=== PATIENT | male | born 1935 | race Hispanic/Latino ===

== ENCOUNTER 2019-06-30 13:16 | Inpatient (IN) | payer MEDICARE, OTHER ==
[~2019-06-30] VITALS: Ht 167.6 cm; Wt 88.5 kg
[~2019-06-30 13:16] MED LIST: AMOXICILLIN500 M1 PO; ATORVASTATIN CA80 MG PO; COUMADIN3 MG PO; DONEPEZIL HCL10 MG PO; ENALAPRIL MALEA20 MG PO; FINASTERIDE5 MG PO; FLOMAX0.4 MG PO; GABAPENTIN100 MG PO; GLIPIZIDE5 MG PO; LANTUS 3ML100 UNITS/ SQ; LANTUS100 UNITS/ SQ; LYRICA75 MG PO; METOPROLOL SUCC25 MG PO; PLAVIX75 MG PO; RANITIDINE HCL150 MG PO
--- OUTSIDE RECORDS SUMMARY | 2019-06-30 13:20 | XMS REPORT ---
Author Author [facility] Organization [facility] Address Unknown Phone Unavailable Care Team Providers Care Night Auditor Name Role Phone Unavailable Unavailable Problems This patient has no known problems. Allergies, Adverse Reactions, Alerts This patient has no known allergies or adverse reactions. Medications This patient has no known medications. Encounters Start Date/Time End Date/Time Encounter Type Admission Type [facility] Care Department Encounter ID 2019-03-01 08:32:00 Inpatient E [facility] [id number] 2019-03-13 21:53:00 2019-03-13 16:09:00 Inpatient E [facility] MED [id number]
[2019-06-30] MEDS ORDERED: SODIUM CHLORIDE 0.9% 1000ML 1,000 ML IV STA (13:23)
[2019-06-30 14:21] LABS: BASOPHILS % 0.3 % (0.0-1.0); EOSINOPHILS # (AUTO) 0.1 (0.0-0.4); EOSINOPHILS % 1.1 % (0.0-6.0); HEMATOCRIT 32.3 % (38.2-49.6); HEMOGLOBIN 10.7 g/dL (14.0-18.0); LYMPHOCYTES # (AUTO) 1.1 (1.0-3.2); LYMPHOCYTES % 13.5 % (18.0-39.1); MEAN CORPUSCULAR HEMOGLOBIN 30.3 pg (28-32); MEAN CORPUSCULAR HGB CONC 33.1 g/dL (31-35); MEAN CORPUSCULAR VOLUME 91.5 fL (81-99); MONOCYTES # (AUTO) 0.4 (0.2-0.8); MONOCYTES % 5.1 % (4.4-11.3); NEUTROPHILS # (AUTO) 6.2 (2.1-6.9); NEUTROPHILS % 79.4 % (38.7-80.0); PLATELET COUNT 201 x10e3/uL (140-360); RED BLOOD COUNT 3.53 x10e6/uL (4.3-5.7)
--- NOTE | 2019-06-30 14:30 | NUR ---
Patient given urinal in order to provide urine sample. Educated patient to notify me via call burciaga when he could provide a sample. Patient verbalized understanding.
[2019-06-30 14:35] LABS: INR 1.08; PROTHROMBIN TIME 14.7 seconds (11.9-14.5)
[2019-06-30 14:36] LABS: PARTIAL THROMBOPLASTIN TIME 25.5 seconds (23.8-35.5)
[2019-06-30 14:44] LABS: ALANINE AMINOTRANSFERASE 488 IU/L (0-55); ALBUMIN 2.4 g/dL (3.5-5.0); ALBUMIN/GLOBULIN RATIO 0.8 (0.8-2.0); ALKALINE PHOSPHATASE 628 IU/L (40-150); AMYLASE 50 U/L (25-125); ANION GAP 13.9 mmol/L (8-16); BLOOD UREA NITROGEN 36 mg/dL (7-26); BUN/CREATININE RATIO 28 (6-25); CALCIUM 8.6 mg/dL (8.4-10.2); CARBON DIOXIDE 22 mmol/L (22-29); CHLORIDE 105 mmol/L (98-107); CREATINE KINASE 57 IU/L (30-200); CREATININE, SERUM 1.29 mg/dL (0.72-1.25); EST GLOMERULAR FILTRATION RATE 53 ML/MIN (60-); GLUCOSE 189 mg/dL (74-118); LIPASE 37 U/L (8-78); POTASSIUM 4.9 mmol/L (3.5-5.1); SODIUM 136 mmol/L (136-145)
[2019-06-30] MEDS ORDERED: ACETAMINOPHEN325 M1 PO (15:07)
[2019-06-30] MEDS ORDERED: CARVEDILOL12.5 MG PO (15:07)
[2019-06-30] MEDS ORDERED: DOCUSATE SODIU100 MG PO (15:09)
[2019-06-30] MEDS ORDERED: LISINOPRIL5 MG PO (15:09)
[2019-06-30] MEDS ORDERED: NAMENDA5 MG PO (15:09)
[2019-06-30] MEDS ORDERED: ASPIR 8181 MG PO (15:10)
--- NOTE | 2019-06-30 15:27 | Diagnostic Imaging Report ---
EXAM: Right upper quadrant abdominal ultrasound INDICATION: Obstructive jaundice COMPARISON: None. TECHNIQUE: Transverse and longitudinal images of the right upper quadrant abdomen were obtained FINDINGS: Liver: Size: 14.3 cm in the right midclavicular line, normal Appearance: Normal echogenicity, smooth contour Mass: No focal masses Gallbladder: Cholelithiasis and sludge in the gallbladder. No gallbladder wall thickening, pericholecystic fluid, or gallbladder distention. Gallbladder wall measures 2 mm. Bile Ducts: Intrahepatic Ducts: No dilatation Extrahepatic Ducts: Common bile duct measures 7 mm Pancreas: Not well-visualized due to overlying bowel gas. Kidney: The right kidney measures 11.3 cm without evidence of hydronephrosis or stone. Right upper pole 3.9 cm anechoic simple cyst. Vessels: Aorta: Visualized portions are normal Inferior Vena Cava: Visualized portions are normal Main Portal Vein: 0.9 cm, normal size with hepatopetal flow. Free Fluid: No ascites or pleural effusion IMPRESSION: Cholelithiasis and sludge in the gallbladder. No sonographic evidence of cholecystitis. Right upper pole renal cyst. Signed by: Bertrand Tong MD on 06/30/2019 3:23 PM
--- NOTE | 2019-06-30 15:30 | NUR ---
Patient unable to provide urina sample at the moment. Stressed patient on importance of sample. Patient verbalized understanding.
[2019-06-30] MEDS ORDERED: IOPAMIDOL 370 MG/ML 200 ML INFUS..BTL INJ ONE (16:09)
[2019-06-30] MEDS ORDERED: SODIUM CHLORIDE 0.9% 50ML 50 ML ONE (16:09)
--- NOTE | 2019-06-30 16:14 | Diagnostic Imaging Report ---
EXAMINATION: CHEST SINGLE (PORTABLE) INDICATION: Obstructive jaundice COMPARISON: CT abdomen and pelvis of the same day FINDINGS: LINES/TUBES:Left chest pacer. EKG leads overlie the chest. LUNGS:The lungs are moderately inflated. Central pulmonary vascular congestion. PLEURA:No pleural effusion or pneumothorax. MEDIASTINUM:Heart size at the upper limits of normal. Atherosclerotic calcifications of the thoracic aorta. BONES/SOFT TISSUES:No acute osseous injury. Sternotomy wires in place. ABDOMEN:No free air under the diaphragm. IMPRESSION: Central pulmonary vascular congestion. No focal pneumonia. Signed by: Bertrand Tong MD on 06/30/2019 4:10 PM
[2019-06-30] MEDS ORDERED: SODIUM CHLORIDE 0.9% 1000ML 1,000 ML IV SCH (16:15)
--- NOTE | 2019-06-30 16:25 | Diagnostic Imaging Report ---
EXAM: CT Abdomen and Pelvis WITH intravenous contrast INDICATION: Jaundice COMPARISON: Right upper quadrant ultrasound of the same day, chest radiograph of the same day TECHNIQUE: Abdomen and pelvis were scanned utilizing a multidetector helical scanner from the lung base to the pubic symphysis after administration of IV contrast. Coronal and sagittal reformations were obtained. Routine protocol was performed. Scan was performed during portal venous phase. IV CONTRAST: 100mL of Isovue 370 ORAL CONTRAST: Water RADIATION DOSE: Total DLP: 507 mGy*cm Dose modulation, iterative reconstruction, and/or weight based adjustment of the mA/kV was utilized to reduce the radiation dose to as low as reasonably achievable. FINDINGS: LOWER THORAX: Dependent subsegmental atelectasis. Coronary artery atherosclerotic calcifications. HEPATOBILIARY: No focal liver lesion. Moderate diffuse intrahepatic biliary ductal dilation. The common bile duct is dilated to 10 mm. A radiopaque structure at the distal common bile duct in the ampullary region may represent an obstructing stone. SPLEEN: No splenomegaly. PANCREAS: No focal masses or ductal dilatation. ADRENALS: No adrenal nodules. KIDNEYS/URETERS: No hydronephrosis or renal calculi. 4.2 cm right upper pole renal cyst. PELVIC ORGANS/BLADDER: The prostate is enlarged and measures up to 4.9 x 5.0 x 4.9 cm (volume estimate 63 cc). PERITONEUM / RETROPERITONEUM: No free air or fluid. LYMPH NODES: No lymphadenopathy. VESSELS: Moderate atherosclerotic calcifications of the nonaneurysmal abdominal aorta and major branches. GI TRACT: No abnormal bowel thickening. No bowel obstruction. Unremarkable appendix. BONES AND SOFT TISSUES: No acute osseous injury. No suspicious lytic or blastic lesions. L2 vertebral body hemangioma. IMPRESSION: Diffuse intrahepatic biliary ductal dilation and common bile duct dilation to 10 mm. Radiopaque structure at the distal common bile duct in the ampullary region may represent an obstructing stone. Recommend GI consultation for further evaluation with ERCP. Prostatomegaly. Signed by: Bertrand Tong MD on 06/30/2019 4:21 PM
[2019-06-30] MEDS: PIPER-TAZ 3.375 GM 50 ML IV SCH ×2 (16:55→23:15)
[2019-06-30 16:56] LABS: AMPHETAMINES SCREEN,URINE NEGATIVE (NEGATIVE); BENZODIAZEPINES SCREEN,URINE NEGATIVE (NEGATIVE); CLARITY,URINE CLOUDY (CLEAR); COLOR,URINE BROWN (YELLOW); PHENCYCLIDINE SCREEN,URINE NEGATIVE (NEGATIVE)
[2019-06-30 16:57] LABS: BILIRUBIN,URINE 3+ (NEGATIVE); KETONES,URINE TRACE (NEGATIVE); LEUKOCYTE ESTERASE ,URINE NEGATIVE (NEGATIVE); NITRITE,URINE NEGATIVE (NEGATIVE); PROTEIN,URINE DIPSTICK 1+ (NEGATIVE); URINE UROBILINOGEN 1 mg/dL (0.2 - 1)
[2019-06-30 17:51] LABS: BACTERIA,URINE MODERATE /HPF
[2019-06-30 17:52] LABS: AMORPHOUS SEDIMENT,URINE MODERATE (FEW)
--- NOTE | 2019-06-30 18:00 | NUR ---
report given to Anabela KELLY
[2019-06-30 19:45] VITALS: BP 126/59
[2019-06-30 20:00] VITALS: BP 126/59
[2019-06-30] MEDS: MORPHINE SULFATE INJ 4 MG/ML INJ 1ML IV PRN (23:15)
[2019-06-30] MEDS: ONDANSETRON HCL INJ 2MG/ML 2ML 2 MG/ML VIAL IV PRN (23:16)
[2019-07-01] VITALS (8 sets, daily range): BP systolic 100–130; BP diastolic 41–110
[2019-07-01 02:51] LABS: CREATINE KINASE 55 IU/L (30-200)
[2019-07-01] MEDS: PIPER-TAZ 3.375 GM 50 ML IV SCH ×4 (05:00→23:04)
[2019-07-01 06:10] LABS: BASOPHILS % 0.4 % (0.0-1.0); EOSINOPHILS # (AUTO) 0.2 (0.0-0.4); HEMATOCRIT 29.5 % (38.2-49.6); LYMPHOCYTES % 14.1 % (18.0-39.1); MEAN CORPUSCULAR HEMOGLOBIN 30.2 pg (28-32); MEAN CORPUSCULAR HGB CONC 33.9 g/dL (31-35); MEAN CORPUSCULAR VOLUME 89.1 fL (81-99); MONOCYTES # (AUTO) 0.4 (0.2-0.8); MONOCYTES % 6.1 % (4.4-11.3); NEUTROPHILS # (AUTO) 5.5 (2.1-6.9); PLATELET COUNT 222 x10e3/uL (140-360); RED BLOOD COUNT 3.31 x10e6/uL (4.3-5.7); RED CELL DISTRIBUTION WIDTH 18.5 % (11.7-14.4)
[2019-07-01 06:26] LABS: CREATINE KINASE 44 IU/L (30-200)
[2019-07-01 06:29] LABS: ALBUMIN 2.1 g/dL (3.5-5.0); ALBUMIN/GLOBULIN RATIO 0.8 (0.8-2.0); ANION GAP 10.6 mmol/L (8-16); CREATININE, SERUM 1.22 mg/dL (0.72-1.25); POTASSIUM 4.6 mmol/L (3.5-5.1)
[2019-07-01] MEDS ORDERED: DEXTROSE 50% SYRINGE 50 ML IV STA (06:37)
--- NOTE | 2019-07-01 07:13 | NUR ---
Received patient lying in bed with eyes closed. Respiration even and unlabored without SOB. Call light in reach.
--- NOTE | 2019-07-01 07:25 | NUR ---
LAB CALLED WITH LOW BG, BG 44. D50 GIVEN, CALLED DR GAYTAN, [facility].
[2019-07-01] MEDS: DEXTROSE 5%/0.9% SOD CHL 1,000 ML IV SCH ×2 (07:26→17:15)
[2019-07-01] MEDS: MORPHINE SULFATE INJ 4 MG/ML INJ 1ML IV PRN (07:27)
[2019-07-01] MEDS: ONDANSETRON HCL INJ 2MG/ML 2ML 2 MG/ML VIAL IV PRN (07:27)
[2019-07-01] MEDS ORDERED: DEXTROSE 50% SYRINGE 50 ML IV PRN (09:00)
[2019-07-01] MEDS: CARVEDILOL 12.5 MG TAB PO SCH ×2 (09:48→17:07)
[2019-07-01] MEDS: TAMSULOSIN HCL 0.4 MG CAP PO SCH (09:49)
[2019-07-01] MEDS: MEMANTINE 10 MG TAB PO SCH ×2 (09:49→16:15)
[2019-07-01] MEDS: GABAPENTIN 100 MG CAP PO SCH ×2 (09:49→16:15)
--- NOTE | 2019-07-01 11:28 | History and Physical ---
CHIEF COMPLAINT: Jaundice increase in liver enzyme. HISTORY OF PRESENT ILLNESS: The patient is an 84-year-old male, who is a resident of [facility]. The patient came in with increase in jaundice associated with increase in liver enzyme. The patient has also had a total bilirubin of 11.8. The patient did not complain of any pain. His sugar was in the 40. The patient baseline Alzheimer dementia. He is unable to give any coherent history, but he is not in any distress. PAST MEDICAL HISTORY: Including benign prostatic hyperplasia, gastroesophageal reflux disease, peripheral vascular disease, hypertension, Alzheimer's dementia, atherosclerotic coronary artery disease, chronic kidney disease, diabetes type 2, dyslipidemia, and diabetic neuropathy. He has a chronic systolic dysfunction congestive heart failure with ejection fraction of 20%. History of hemorrhagic stroke. ICD, CEA CABG. Coronary stents. PAST SURGICAL HISTORY: Right AKA. ICD, CABG, CEA SOCIAL HISTORY: The patient is a resident of [facility]. ALLERGIES: NO KNOWN ALLERGIES. CURRENT MEDICATIONS: Lantus insulin 35 units at night and 5 units in the morning, insulin sliding scale coverage, Tylenol p.r.n., Colace, multivitamins, Coreg 12.5 mg b.i.d., lisinopril 5 mg b.i.d., Aricept 10 mg at bedtime, Namenda 10 mg b.i.d., aspirin 81 mg daily, Flomax 0.4 mg daily, finasteride 5 mg daily, gabapentin 100 mg t.i.d. PHYSICAL EXAMINATION: VITAL SIGNS: Temperature is 98, blood pressure 118/49, pulse rate 70, and respirations 18. GENERAL: The patient is not in acute distress. HEENT: Normocephalic. Jaundice. NECK: Grossly supple. PULMONARY: Diminished breath sounds. CARDIOVASCULAR: Promus pacemaker. ABDOMEN: Soft. EXTREMITIES: Right AKA. NEUROLOGIC: No gross focal deficit. LABORATORY DATA: WBC 7.8, hemoglobin 10.7, hematocrit 32.3, and platelets are 201. Chemistry; sodium 140, potassium 4.6, chloride 112, bicarb 22, BUN is 30, creatinine 1.5, and glucose is 44. Calcium is 8, total bilirubin is 11.8, AST 227, ALT is 402, alkaline phosphatase is 646. Cardiac enzymes negative. Amylase and lipase are 50 and 12 respectively. IMAGING TESTS: Abdominal CT scan showed diffuse intrahepatic biliary ductal dilatation and common bile duct dilatation to 10 mm. Radiopaque structure at the distal common bile duct in the ampullary region. Chest x-ray vascular congestion. Gallbladder ultrasound showed cholelithiasis and sludge in the gallbladder. IMPRESSION: 1. Painless jaundice. 2. Common bile duct stone obstruction. 3. Obstructive jaundice. 4. Elevation of liver enzymes. 5. Extensive chronic medical problems. PLAN: GI consultation, Dr. Vincent Daniel. Surgery consultation with Dr. Stefan Guy. Zosyn IV antibiotic empirically. Nothing by mouth except for medication. IV fluids. Treat low blood sugar. Home medications some adjustment. Blood pressure control. MD HONG Brown/JA /[id number] MTDD
[2019-07-01] MEDS: INSULIN LISPRO 100 UNIT/1 ML 3ML VIAL SQ SCH ×3 (12:00→23:05)
--- NOTE | 2019-07-01 12:57 | NUR ---
Left a voicemail to Dr. Frantz Chowdary regarding patient's episode of VTACH. Awaiting for call back.
[2019-07-01 14:05] LABS: CREATINE KINASE 61 IU/L (30-200)
--- NOTE | 2019-07-01 14:33 | Consultation ---
DATE OF CONSULTATION: 07/01/2019 HISTORY OF PRESENT ILLNESS: The patient is an 84-year-old male, resident of senior living, who was sent to the hospital with jaundice. The patient denies any abdominal pain. He was found to have a bilirubin of 11.8. An abdominal CT scan suggested a gallstone in the distal common bile duct. PAST MEDICAL HISTORY: Significant for enlarged prostate, gastroesophageal reflux disease, peripheral vascular disease, previous right shzix-doa-stxp amputation, history of hypertension, Alzheimer's, coronary artery disease, chronic kidney disease, diabetes, hyperlipidemia. MEDICATIONS: At the senior living are insulin, Coreg, Colace, lisinopril, Aricept, Namenda, Flomax, finasteride, gabapentin. ALLERGIES: HE HAS NO KNOWN ALLERGIES. FAMILY HISTORY: Noncontributory. SOCIAL HISTORY: The patient is a resident of senior living. REVIEW OF SYSTEMS: Cannot be obtained. PHYSICAL EXAMINATION: GENERAL: The patient is awake and alert. VITAL SIGNS: Normal. HEENT: Sclerae is icteric. NECK: Has no masses. LUNGS: Equal breath sounds are clear bilaterally. CARDIAC: Paced rhythm. ABDOMEN: Soft. There is no tenderness. No mass. No organomegaly. EXTREMITIES: Healed right above-knee amputation. NEUROLOGIC: Grossly intact with a right facial droop. LABORATORY DATA: White blood cell count is normal, hemoglobin 10, hematocrit 30, and platelet count is normal. Coagulation studies reveal slightly elevated PT. Chemistries; revealed elevated bilirubin 11.8, elevated AST, ALT, and alkaline phosphatase. Lipase is normal. BUN is 30, creatinine 1.2. IMAGING STUDIES: As stated above. Ultrasound revealed gallstones with sludge with a CT scan revealing dilated bile duct with possible common bile duct stone. ASSESSMENT: This 84-year-old male with obstructive jaundice, likely due to choledocholithiasis. He is to have ERCP done on Wednesday. At this point, he may start on liquid diet. There are no signs of acute abdomen. No findings that would warrant immediate surgical intervention. He likely also will benefit from cholecystectomy once the ERCP has been done. Thank you for asking me to see Mr. Forrester. MD ANKIT Flores/JA /[id number]
--- NOTE | 2019-07-01 16:59 | Consultation ---
DATE OF CONSULTATION: CHIEF COMPLAINT: Jaundice. HISTORY OF PRESENT ILLNESS: This is a very pleasant 84-year-old man comes in with obstructive jaundice. Bilirubin of 11. Dilated bile ducts on CAT scan. Possible stone in the common bile duct. The patient denies abdominal pain. Denies fever or chills. He is currently on antibiotics. He has other medical problems including peripheral vascular disease. PAST MEDICAL HISTORY: See old records including peripheral vascular disease and diabetes. PAST SURGICAL HISTORY: Above knee amputation. SOCIAL HISTORY: The patient lives in a long-term. He also has some mild dementia. MEDICATIONS: See list. They include: 1. Insulin. 2. Lisinopril. 3. Flomax. 4. Gabapentin. 5. Coreg. REVIEW OF SYSTEMS: Jaundice, otherwise negative. PHYSICAL EXAMINATION: VITAL SIGNS: Blood pressure 118/50, pulse 80, temp 98. GENERAL: Well-nourished, elderly man, who has jaundice. HEART: Regular. ABDOMEN: Soft and nontender. ASSESSMENT AND PLAN: Jaundice, most likely common bile duct stone. I will recommend an ERCP. COVID test is pending. Continue antibiotics for closely. MD COLIN AsifO/MODL /[id number]
--- NOTE | 2019-07-01 17:35 | NUR ---
Nutrition Screen Note RD Recommendation for Physician: - Advance diet as tolerated to cardiac/ ADA 1800 diet Plan of Care: RD following, monitoring for tolerance and adequacy Nutrition reason for involvement: Nutrition Risk Trigger MST Primary Diagnose(s): obstructive jaundice, likely due to choledocholithiasis PMH: GERD, PVD, CKD, CAD, CHF, dyslipidemia, stroke, dementia, DM Ht: 66in Wt: 175lb BMI: N/A due to R AKA IBW: 120lb +/- 10% Adjusted based on R AKA RD Assessment: (06/30) Chart reviewed. Labs and meds reviewed. 84yo M, who was admitted from group home for jaundice and elevated liver enzymes. Visited pt in the room. Pt tolerated clear liquid diet. No complains of nausea or vomiting. LBM 06/29. Unable to obtain weight hx. Pt appeared well-nourished. Plan to have ERCP on Wednesday and possible cholecystectomy. Will continue to monitor and follow. Current Diet: clear liquid diet Malnutrition Evaluation (07/01/2019) The patient does not meet criteria for a specified degree of malnutrition at this time. Will re-evaluate at follow-up as appropriate. Diet Education Needs Assessment: Diet education not indicated. Nutrition Care Level: low Signed: Jesusita Torres, MS, RD, LD
--- NOTE | 2019-07-01 17:59 | Consultation ---
DATE OF CONSULTATION: Cardiology Consultation CHIEF COMPLAINT: The patient is an 84-year-old with jaundice. HISTORY OF PRESENT ILLNESS: The patient is an 84-year-old male who lives at the [facility] and came into the emergency room with jaundice and a total bilirubin of 12. The patient was not having any chest pain, no shortness of breath. No syncope. No dizziness. The patient did have some nausea, but no vomiting. PAST MEDICAL HISTORY: Significant for: 1. Chronic systolic congestive heart failure with a known ejection fraction of 25%. 2. Previous coronary artery bypass grafting in 2012. 3. Hypertension. 4. Chronic renal insufficiency. 5. Diabetes mellitus. 6. Implantable defibrillator placement. 7. Right qinzi-aue-zcnm amputation. SOCIAL HISTORY: The patient lives at a [facility]. The patient does not drink and is no longer smoking. FAMILY HISTORY: There is a known family history of coronary artery disease and hypertension. PHYSICAL EXAMINATION: GENERAL: The patient is in no obvious distress. VITAL SIGNS: Included a temperature of 98, blood pressure of 120/60, pulse is 70. HEAD, EARS, EYES, NOSE, AND THROAT: The patient's cranium was normocephalic and atraumatic. Extraocular muscles were intact. Sclerae were anicteric. Pupils were equal, round, and reactive to light. There is no pallor or cyanosis of the oral mucosa. NECK: Supple. No jugular venous distention. No carotid bruits. CHEST: Demonstrated rhonchi and rales bilaterally. CARDIAC: Demonstrated normal S1 and S2 with a short 2/6 systolic murmur ABDOMEN: Demonstrated good bowel sounds. No tenderness. No obvious masses. EXTREMITIES: The patient had a right sxefq-epj-caqm amputation. NEUROLOGIC: The patient was somewhat confused. IMAGING: The patient's EKG demonstrated atrioventricular pacing. IMPRESSION: The patient is an 84-year-old with chronic systolic congestive heart failure that appears to be very well compensated. The patient is having no chest pain and has no evidence of ischemia or current heart failure. The patient is cleared for endoscopy and ERCP from a cardiac standpoint. MD MERCY Villalobos/MODCici /[id number]
--- NOTE | 2019-07-01 19:00 | NUR ---
Report given to security shift supervisor. Respiration even and unlabored without SOB. Call light in reach.
[2019-07-01] MEDS: FINASTERIDE 5 MG TAB PO SCH (21:42)
[2019-07-01] MEDS: DONEPEZIL HCL 5 MG TAB PO SCH (21:42)
[2019-07-02] VITALS (7 sets, daily range): BP systolic 104–120; BP diastolic 45–62
[2019-07-02] MEDS: DEXTROSE 5%/0.9% SOD CHL 1,000 ML IV SCH ×2 (04:10→17:31)
[2019-07-02] MEDS: PIPER-TAZ 3.375 GM 50 ML IV SCH ×4 (04:20→23:18)
[2019-07-02] MEDS: INSULIN LISPRO 100 UNIT/1 ML 3ML VIAL SQ SCH ×3 (05:58→17:00)
--- NOTE | 2019-07-02 07:13 | NUR ---
Received patient lying in bed with eyes open. Respiration even and unlabored without SOB. Call light in reach.
[2019-07-02] MEDS: TAMSULOSIN HCL 0.4 MG CAP PO SCH (08:46)
[2019-07-02] MEDS: CARVEDILOL 12.5 MG TAB PO SCH ×2 (08:46→16:13)
[2019-07-02] MEDS: GABAPENTIN 100 MG CAP PO SCH ×2 (08:46→16:14)
[2019-07-02] MEDS: MEMANTINE 10 MG TAB PO SCH ×2 (08:46→16:13)
--- NOTE | 2019-07-02 18:55 | NUR ---
Report given to mold shifter. Patient in the room with a sitter at this time.
[2019-07-02] MEDS: DONEPEZIL HCL 5 MG TAB PO SCH (20:31)
[2019-07-02] MEDS: FINASTERIDE 5 MG TAB PO SCH (20:31)
[2019-07-03] VITALS (8 sets, daily range): BP systolic 110–131; BP diastolic 51–80
[2019-07-03] MEDS: PIPER-TAZ 3.375 GM 50 ML IV SCH ×4 (04:57→22:25)
[2019-07-03] MEDS: INSULIN LISPRO 100 UNIT/1 ML 3ML VIAL SQ SCH ×4 (05:55→18:30)
[2019-07-03] MEDS: MEMANTINE 10 MG TAB PO SCH ×2 (09:00→16:53)
[2019-07-03] MEDS: GABAPENTIN 100 MG CAP PO SCH ×2 (09:00→16:53)
[2019-07-03] MEDS: DEXTROSE 5%/0.9% SOD CHL 1,000 ML IV SCH ×2 (09:15→09:38)
[2019-07-03] MEDS: TAMSULOSIN HCL 0.4 MG CAP PO SCH (09:20)
[2019-07-03] MEDS: CARVEDILOL 12.5 MG TAB PO SCH ×2 (09:20→16:53)
[2019-07-03] MEDS: FUROSEMIDE INJ 10 MG/ML 2 ML VIAL IV SCH (10:27)
--- NOTE | 2019-07-03 11:57 | NUR ---
Patient left the floor for ERCP
[2019-07-03] MEDS ORDERED: IOPAMIDOL 300MG/ML 50ML INFUS..BTL IV ONE (12:42)
[2019-07-03] MEDS ORDERED: INDOMETHACIN 50 MG SUPP.RECT RC ONE (12:42)
[2019-07-03] MEDS ORDERED: SUGAMMADEX SODIUM 200 MG/2 ML VIAL IV ONE (13:43)
--- NOTE | 2019-07-03 13:56 | NUR ---
WOUND CARE CONSULT FOR 84 YO MALE HX OF GALLBLADDER , JAUNDICE, NECROTIC LEFT HEEL AND GREAT TOE KIM 14 ON MODERATE PUP STATUS AND INTERVENTIONS AND ALTERNATING PRESSURE MATTRESS LABS: WBC-7.22 HGB_10 GLUCOSE-PEND [id number] SKIN ASSESSMENT COMPLETE PATIENT PRESENTS WITH NECROTIC DRY STABLE ESCHAR TO LEFT HEEL MEASURES 5CM X6CM DRY NECROTIC TIP OF LEFT GREAT TOE 2CM X2CM RECOMMENDATIONS: NURSING TO CONTINUE TO MAINTAIN MODERATE PUP STATUS AND INTERVENTIONS AND ALTERNATING PRESSURE MATTRESS NURSING TO CONTINUE TO ASSIST PATIENT OUT OF BED FOR MEALS AND MUCH TOLERATED NURSING TO CONTINUE TO ASSIST PATIENT NEEDED WITH MEALS AND NUTRITIONAL SUPPLEMENTS TO ENSURE PROPER REQUIREMENTS FOR HEALING NURSING TO CONTINUE TO OFFLOAD FEET AND HEELS NEEDED WITH PILLOW SUSPENSION WHEN IN BED NURSING TO CLEAN NECROTIC LEFT GREAT TOE ESCHAR AND LEFT HEEL ESCHAR WITH NORMAL SALINE DAILY AND APPLY BETADINE AND 4X4 WRAP WITH KERLIX Addendum: 07/03/19 at 1403 by Rkiy Block RN Amended: Links added.
[2019-07-03] MEDS ORDERED: SODIUM CHLORIDE 0.9% 1000ML 1,000 ML IV SCH (14:00)
[2019-07-03] MEDS ORDERED: FUROSEMIDE INJ 10 MG/ML 4 ML VIAL ONE (15:39)
[2019-07-03] MEDS ORDERED: FUROSEMIDE INJ 10 MG/ML 4 ML VIAL IV SCH (16:15)
[2019-07-03] MEDS: MORPHINE SULFATE INJ 4 MG/ML INJ 1ML IV PRN (16:54)
[2019-07-03] MEDS ORDERED: DEXAMETHASONE SOD PHOS INJ 4 MG/ML VIAL ONE (18:44)
[2019-07-03] MEDS ORDERED: PROPOFOL IV EMULSION 10 MG/ML 20 ML VIAL ONE (18:44)
[2019-07-03] MEDS ORDERED: ONDANSETRON HCL INJ 2MG/ML 2ML 2 MG/ML VIAL ONE (18:44)
[2019-07-03] MEDS ORDERED: LIDOCAINE HCL 2% LOCAL INJ 5 ML SDV VIAL INJ ONE (18:44)
[2019-07-03] MEDS ORDERED: SEVOFLURANE INHAL SOLN 250 ML PEN BTL ONE (18:44)
[2019-07-03] MEDS ORDERED: ETOMIDATE 2 MG/ML 10 ML INJ IV ONE (18:44)
--- NOTE | 2019-07-03 19:29 | NUR ---
Patient received lying in bed. AAO x 3. Patient had no complaints of pain. Respirations even and non-labored. Dressing to left foot CDI. Bed locked and in lowest position. Bed rails up x 2. Bed alarm activated. Patient instructed to call for assistance when needed. Call light within reach.
--- NOTE | 2019-07-03 20:45 | NUR ---
Disclosure and Consent form signed on behalf of patient by Beryl Muir [facility] via phone. Leoncio Wiley ([facility]) acting as a witness. Upcoming procedure---Laparoscopic cholecystectomy .
[2019-07-03] MEDS: DONEPEZIL HCL 5 MG TAB PO SCH (21:59)
[2019-07-03] MEDS: FINASTERIDE 5 MG TAB PO SCH (21:59)
[2019-07-04] VITALS (8 sets, daily range): BP systolic 107–131; BP diastolic 42–75
[2019-07-04] MEDS: PIPER-TAZ 3.375 GM 50 ML IV SCH ×4 (05:00→22:35)
[2019-07-04] MEDS: INSULIN LISPRO 100 UNIT/1 ML 3ML VIAL SQ SCH ×4 (06:00→17:30)
--- NOTE | 2019-07-04 06:00 | NUR ---
Telephone Consent was obtained from daughter (Beryl Muir) who serves as MPOA for patient for "Refusal to Permit Use of Blood and/or Blood Components". Leoncio Wiley (RN) served as a witness.
[2019-07-04 06:15] LABS: ALBUMIN 2.1 g/dL (3.5-5.0)
[2019-07-04 06:21] LABS: BILIRUBIN,DIRECT 11.2 mg/dL (0.0-0.5)
--- NOTE | 2019-07-04 07:00 | NUR ---
Walking rounds done. Patient resting comfortably. BSSR given to oncoming nurse.
[2019-07-04] MEDS: MEMANTINE 10 MG TAB PO SCH ×2 (09:00→16:24)
[2019-07-04] MEDS: GABAPENTIN 100 MG CAP PO SCH ×2 (09:00→16:24)
[2019-07-04] MEDS ORDERED: FUROSEMIDE INJ 10 MG/ML 2 ML VIAL IV SCH (09:00)
[2019-07-04] MEDS: FUROSEMIDE INJ 10 MG/ML 2 ML VIAL IV SCH (10:01)
[2019-07-04] MEDS: CARVEDILOL 12.5 MG TAB PO SCH ×2 (10:02→16:24)
[2019-07-04] MEDS: TAMSULOSIN HCL 0.4 MG CAP PO SCH (10:02)
[2019-07-04] MEDS: MORPHINE SULFATE INJ 4 MG/ML INJ 1ML IV PRN (10:15)
[2019-07-04] MEDS ORDERED: BUPIVACAINE HCL 0.5% INJ 30 ML VIAL INJ ONE (11:40)
[2019-07-04] MEDS ORDERED: SUGAMMADEX SODIUM 200 MG/2 ML VIAL IV ONE (13:19)
[2019-07-04] MEDS ORDERED: HYDROCODONE/APAP 5MG-325MG TAB PO PRN (13:45)
[2019-07-04] MEDS ORDERED: MORPHINE SULFATE INJ 4 MG/ML INJ 1ML IV PRN (13:45)
[2019-07-04] MEDS ORDERED: ONDANSETRON HCL INJ 2MG/ML 2ML 2 MG/ML VIAL IV PRN (13:45)
[2019-07-04] MEDS ORDERED: SODIUM CHLORIDE 0.9% 1000ML 1,000 ML IV SCH (13:45)
[2019-07-04] MEDS ORDERED: FENTANYL CITRATE/PF 100MCG/2 ML INJ ONE ×2 (13:57→14:05)
[2019-07-04] MEDS ORDERED: MIDAZOLAM HCL 2 MG/2 ML VIAL ONE (14:05)
[2019-07-04] MEDS ORDERED: ONDANSETRON HCL INJ 2MG/ML 2ML 2 MG/ML VIAL ONE (14:17)
--- NOTE | 2019-07-04 14:30 | NUR ---
Received patient at bedside. Recovery nurse at bedside, she reports she has to reinforce middle trochar site with 4 x4 bc it was bleeding. Will continue to monitor site. Patient is alert and oriented x3, a little confused at this time but has no complaints. Call light in reach and bed alarm on
--- NOTE | 2019-07-04 15:30 | NUR ---
Middle trochar site dressing is saturated through dressing and on patient's gown. Pressure dressing was applied. Dr. Guy was notified. Per Dr. Guy keep pressure dressing in place and leave alone unless it becomes saturated.
--- NOTE | 2019-07-04 20:31 | Operative Report ---
DATE OF PROCEDURE: 07/04/2019 SURGEON: Stefan Guy MD PREOPERATIVE DIAGNOSES: Tatqh-qh-csyoiho cholecystitis, cholelithiasis. POSTOPERATIVE DIAGNOSES: Hkudr-cs-seyejnx cholecystitis, cholelithiasis. PROCEDURES: Diagnostic laparoscopy, laparoscopic cholecystectomy. RECOVERY COACH: None. ANESTHESIA: General endotracheal. INDICATIONS AND FINDINGS: The patient is an 84-year-old male, who admitted to the hospital with jaundice, abdominal pain workup revealed gallstones as well as common bile duct stones. He had preop ERCP. At Surgery, based on the gallbladder very distended and somewhat fibrotic, and edematous contained white bile and purulent fluid with some small stones. Cystic duct was about 4 mm in diameter. Common bile duct was about 8 mm in diameter. Liver had some changes, suggestive of jaundice with discoloration, lower abdomen appeared normal. TECHNIQUE: After adequate general endotracheal anesthesia, the patient is in supine position, the abdomen was prepped and draped in sterile fashion with ChloraPrep solution. Skin in the umbilicus was infiltrated with 0.5% Marcaine. Incision was made in the umbilicus, abdominal wall was elevated, and Veress needle was introduced, pneumoperitoneum was then created. A 10 mm trocar and cannula were then passed through the umbilical wound. Laparoscopic camera was introduced. Initial laparoscopy revealed the gallbladder very distended with some adhesions involving all omentum. A 10 mm trocar and cannula were placed in epigastrium. Two 5 mm trocars and cannulas were placed in the right upper quadrant, these were placed under direct vision. Fundus of the gallbladder was grasped, retracted superiorly. The adhesions of the gallbladder were lysed staying close to the gallbladder. Neck of the gallbladder was grasped, retracted laterally. Peritoneum over the neck of the gallbladder was incised. The gallbladder cystic duct junction was dissected free. Cystic artery was also dissected free. The neck of the gallbladder completely dissected free. Cystic artery was divided between hemoclips close to the gallbladder. Cystic duct was large noted and divided. The epigastric cannula changed to a 12 mm cannula and the cystic duct was divided with Endo-SCAR stapler. There was a posterior branch of cystic artery was also divided between hemoclips. The gallbladder was dissected free from the liver using scissors and electrocautery. Once it was entirely free, it was placed in an Endopouch and brought through the epigastric cannula. There was some bleeding from the gallbladder bed, was controlled with electrocautery. There was bleeding from the edge of the gallbladder bed, this was packed with Surgicel gauze and hemostasis was achieved. Instruments and cannulas were then removed. Pneumoperitoneum was evacuated. Wounds were then closed. Fascia and the larger trocar wounds closed with 0 Vicryl. Skin to all wounds closed with don. Sterile dressings applied to each wound. The patient tolerated the procedure well. Estimated blood loss was 75 mL. There were no complications. All counts were correct. The patient was taken to the recovery room in satisfactory condition. MD ANKIT Flores/KOBEL /[id number] cc: Frantz Chowdary MD
--- NOTE | 2019-07-04 21:27 | Progress Note ---
DATE: 07/04/2019 GI Progress Report SUBJECTIVE: The patient had undergone laparoscopic cholecystectomy today. He has been allowed clear liquid postsurgery. He is complaining of some incisional pain. REVIEW OF SYSTEMS: GENERAL: No fever or chills. CVS: No chest pain or palpitation. RESPIRATORY: No cough or expectoration. MEDICATIONS: 1. Insulin. 2. Carvedilol. 3. Memantine. 4. Gabapentin. 5. Intravenous piperacillin/tazobactam. 6. Tamsulosin. 7. Furosemide. 8. Donepezil. 9. Finasteride. 10. Normal saline at 100 mL an hour. 11. Hydrocodone as well as morphine as needed. PHYSICAL EXAMINATION: VITAL SIGNS: Temperature 97, pulse 68, respirations 19, blood pressure 121/75, oxygen saturation 100% on 2 L of nasal cannula. GENERAL: Not in any acute distress. HEENT: Oral mucosa is moist. ABDOMEN: Soft. Incisional upper quadrant tenderness. No rebound, rigidity or any guarding. Bowel sounds minimal. LABORATORY DATA: Liver enzymes showed total bilirubin has gone up to 15.5 from 11.8, AST down to 161 from 227, ALT down to 303 from 402, alkaline phosphatase 803 from 646. IMPRESSION: 1. Choledocholithiasis, status post endoscopic retrograde cholangiopancreatography and sphincterotomy with sludge removal on 07/03/2019. 2. Laparoscopic cholecystectomy on 07/04/2019. 3. Liver enzymes elevated. PLAN: Continue postop management as per Surgery. I would expect liver enzymes to go up, especially after some instrumentation. Common bile duct was cleared within sphincterotomy and balloon sweep when ERCP was performed yesterday. Continue to monitor liver enzymes. Bijan Ratliff MD SA/JA /[id number]
[2019-07-04] MEDS: DONEPEZIL HCL 5 MG TAB PO SCH (22:15)
[2019-07-04] MEDS: FINASTERIDE 5 MG TAB PO SCH (22:25)
[2019-07-05] VITALS (9 sets, daily range): BP systolic 84–110; BP diastolic 7–68
--- NOTE | 2019-07-05 00:36 | NUR ---
Dressing to trocar site (umbilical area} saturated with blood despite application and reinforcement of dressing. Dr. Guy notified. Order received to take out old dressing and apply new dressing. Gauze, abdominal pads and Medfix dressing applied to trocar site with pressure. Will continue to monitor.
[2019-07-05] MEDS: PIPER-TAZ 3.375 GM 50 ML IV SCH ×4 (05:15→23:18)
[2019-07-05] MEDS: INSULIN LISPRO 100 UNIT/1 ML 3ML VIAL SQ SCH ×4 (06:00→17:51)
[2019-07-05 06:01] LABS: ALBUMIN 1.9 g/dL (3.5-5.0); ALBUMIN/GLOBULIN RATIO 0.7 (0.8-2.0); ANION GAP 13.8 mmol/L (8-16); CALCIUM 7.9 mg/dL (8.4-10.2); CREATININE, SERUM 3.06 mg/dL (0.72-1.25); POTASSIUM 4.8 mmol/L (3.5-5.1)
[2019-07-05 06:36] LABS: BASOPHILS % 0.4 % (0.0-1.0); EOSINOPHILS # (AUTO) 0.1 (0.0-0.4); EOSINOPHILS % 1.3 % (0.0-6.0); LYMPHOCYTES # (AUTO) 0.8 (1.0-3.2); LYMPHOCYTES % 11.3 % (18.0-39.1); MEAN CORPUSCULAR HEMOGLOBIN 30.7 pg (28-32); MEAN CORPUSCULAR HGB CONC 33.3 g/dL (31-35); MEAN CORPUSCULAR VOLUME 92.2 fL (81-99); MONOCYTES # (AUTO) 0.6 (0.2-0.8); MONOCYTES % 8.8 % (4.4-11.3); NEUTROPHILS # (AUTO) 5.4 (2.1-6.9); NEUTROPHILS % 77.5 % (38.7-80.0); PLATELET COUNT 194 x10e3/uL (140-360); RED BLOOD COUNT 2.18 x10e6/uL (4.3-5.7); RED CELL DISTRIBUTION WIDTH 19.6 % (11.7-14.4)
[2019-07-05 06:42] LABS: HEMATOCRIT 20.1 % (38.2-49.6)
[2019-07-05 06:43] LABS: HEMOGLOBIN 6.7 g/dL (14.0-18.0)
--- NOTE | 2019-07-05 06:47 | NUR ---
A message was left on Dr. Chowdary's voice-mail regarding critical HGB (6.7) and HCT (20.1) results. Awaiting call back.
--- NOTE | 2019-07-05 07:00 | NUR ---
Patient resting comfortably. No acute distress noted. Shift report given to oncoming nurse regarding patient's status.
--- NOTE | 2019-07-05 07:05 | NUR ---
RCD PT AT BED PT IS ALERT AND ORIENTED RESTING ON BED IV PATENT NO SIGNS OF BLEEDING ON THE SURGICAL SITE BED LOW AND LOCKED CALL LIGHT IN REACH
[2019-07-05] MEDS: TAMSULOSIN HCL 0.4 MG CAP PO SCH (09:00)
[2019-07-05] MEDS: FUROSEMIDE INJ 10 MG/ML 2 ML VIAL IV SCH (09:00)
[2019-07-05] MEDS: CARVEDILOL 12.5 MG TAB PO SCH ×2 (09:00→17:00)
[2019-07-05] MEDS: MEMANTINE 10 MG TAB PO SCH ×2 (09:00→17:00)
[2019-07-05] MEDS: GABAPENTIN 100 MG CAP PO SCH ×2 (09:00→17:00)
--- NOTE | 2019-07-05 09:00 | NUR ---
PT HB 6.[address] GAYTAN WHEN HE CAME TO SEE THE PT HE SAID PT IS JEHOVAHS WITNESS SO NO BLOOD TRANSFUSION
[2019-07-05] MEDS ORDERED: EPOETIN ALFA-EPBX 10,000 UNIT/ML VIAL SC ONE (10:30)
[2019-07-05] MEDS: IRON SUCROSE 100 MG in SODIUM CHLORIDE 0.9% 100 ML 100 ML IV SCH (11:00)
--- NOTE | 2019-07-05 13:05 | NUR ---
VITALS CHECKED BP 93/68 MM HG HR 78/MT
--- NOTE | 2019-07-05 13:05 | NUR ---
FRESH BLEEDING NOTED ON THE UMBICAL SITE PRESSURE DRESSING APPLIED AND NOTIFIED DR CAN HE SAID HE IS COMING TO SEE THE PT
--- NOTE | 2019-07-05 15:15 | NUR ---
DID 2 STITCHES ON THE BLEEDING SITE ( UMBICAL)
--- NOTE | 2019-07-05 16:30 | NUR ---
NO BLEEDING NOTED ON THE SURGICAL SITE
--- NOTE | 2019-07-05 17:00 | NUR ---
PT HE DIDN'T VOIDED IN THE SHIFT BLADDER SCAN DONE 487 ML URINE IN THE BLADDER
--- NOTE | 2019-07-05 17:10 | NUR ---
STRAIGHT CATH DONE AND REMOVED 480 ML CONCENTRATED URINE
[2019-07-05] MEDS ORDERED: ONDANSETRON HCL 4 MG ORAL DISINTEGRATING TAB PO PRN (19:15)
--- NOTE | 2019-07-05 19:16 | NUR ---
PT RESTING ON BED BED SIDE REPORT GIVEN TO ONCOMING NURSE
--- NOTE | 2019-07-05 20:31 | Progress Note ---
DATE: 07/05/2019 GI Progress Report SUBJECTIVE: The patient is still on clear liquid diet. He has not had any bowel movement. He has had episode of some bleeding from the trocar incision site. Dr. Guy put some stitches on it. He is no longer bleeding from the trocar site. Reports only incisional pain. REVIEW OF SYSTEMS: GENERAL: No fever or chills. CVS: No chest pain, palpitation. RESPIRATORY: No cough or expectoration. MEDICATION: Insulin lispro, memantine, gabapentin, piperacillin/tazobactam 3.375 mg IV q.6 hours, intravenous iron, furosemide 20 mg IV daily, tamsulosin 0.4 mg daily, morphine 3 mg q.3 hours as needed, finasteride 5 mg p.o. at bedtime, donepezil 15 mg p.o. at bedtime, carvedilol 25 mg b.i.d., Zofran 4 mg IV q.4 hours as needed. PHYSICAL EXAMINATION: VITAL SIGNS: Temperature 97.3, pulse 91, respirations 16, blood pressure 100/55 to 93/68, oxygen saturation 100% on 2 L of nasal cannula. GENERAL: Not in any acute distress. Oral mucosa is moist. ABDOMEN: Soft. Right upper quadrant incisional tenderness on deep palpation without rebound, rigidity, or guarding. Bowel sounds minimal. EXTREMITIES: Right AKA and left foot is in some dressing. LABORATORY DATA: WBC 6.9, hemoglobin dropped down from 10 to 6.7, hematocrit 20.1, platelet count 194. Sodium 141, potassium 4.8, chloride 113, bicarb 19, BUN 45, creatinine 3.06 up from 1.22. Total bilirubin is down to 10.2 from 15.5, AST down to 143 from 161, ALT down to 240 from 303, alkaline phosphatase down to 512 from 803. IMPRESSION: 1. Choledocholithiasis status post ERCP, sphincterotomy with balloon sweep resulted into removal of lot of pus and sludge. Procedure was done on 07/03/2019. 2. Laparoscopic cholecystectomy on 07/04/2019. 3. Liver enzymes elevated. 4. Acute blood loss anemia post surgery as well as bleeding from trocar incision site. 5. Adventist, therefore cannot get blood, he is being given Epogen and iron infusion. PLAN: Oral diet as per surgery. Continue IV piperacillin/tazobactam. Monitor stool to ensure that the patient is not having any melena. He is at the risk of getting post sphincterotomy bleeding. Liver enzyme is trending down. Bijan Ratliff MD SA/JA /[id number]
[2019-07-05] MEDS: DONEPEZIL HCL 5 MG TAB PO SCH (21:19)
[2019-07-05] MEDS: FINASTERIDE 5 MG TAB PO SCH (21:20)
[2019-07-06] VITALS (7 sets, daily range): BP systolic 78–94; BP diastolic 32–54
[2019-07-06] MEDS: INSULIN LISPRO 100 UNIT/1 ML 3ML VIAL SQ SCH ×4 (00:26→16:30)
[2019-07-06] MEDS: PIPER-TAZ 3.375 GM 50 ML IV SCH ×4 (06:31→23:57)
--- NOTE | 2019-07-06 07:10 | NUR ---
RCD PT AT BED PT IS ALERT AND ORIENTED RESTING ON BED IV PATENT BY SALINE FLUSH NO SIGNS OF BLEEDING NOTED ON INCISION SITE HE DIDN'T VOIDED BLADDER SCAN DONE 150 ML URINE IN THE BLADDER BED LOW AND LOCKED CALL LIGHT IN REACH
--- NOTE | 2019-07-06 08:00 | NUR ---
STRAIGHT CATH DONE AND REMOVED 140 ML CONCENTRATED URINE
--- NOTE | 2019-07-06 08:30 | NUR ---
BP 83/38 ,NOT VOIDED NOTIFIED DR RED WHEN HE CAME TO SEE THE PT GOT NEW ORDERS
[2019-07-06] MEDS ORDERED: SODIUM CHLORIDE 0.9% 1000ML 500 ML IV ONE (08:45)
[2019-07-06] MEDS: TAMSULOSIN HCL 0.4 MG CAP PO SCH (09:00)
[2019-07-06] MEDS: GABAPENTIN 100 MG CAP PO SCH (09:00)
[2019-07-06] MEDS: MEMANTINE 10 MG TAB PO SCH ×2 (09:00→17:00)
[2019-07-06] MEDS ORDERED: SODIUM CHLORIDE 0.9% 500ML 500 ML IV ONE ×2 (09:15→10:15)
[2019-07-06] MEDS: IRON SUCROSE 100 MG in SODIUM CHLORIDE 0.9% 100 ML 100 ML IV SCH (11:00)
--- NOTE | 2019-07-06 15:37 | Diagnostic Imaging Report ---
Fluoroscopic guidance for ERCP: Fluoroscopy time: 1 minute 48 seconds Cumulative dose: 88.3 Fluoroscopic guidance was provided for endoscopic retrograde cholangiopancreatography. Images demonstrate common bile duct opacification with multiple apparent filling defects. Subsequent balloon sweep was performed. Please refer to the endoscopic report for further details. Signed by: Bertrand Tong MD on 07/06/2019 3:34 PM
--- NOTE | 2019-07-06 17:36 | NUR ---
BLADDER SCAN DONE 150 ML URINE AND STRAIGNT CATH DONE
--- NOTE | 2019-07-06 18:59 | NUR ---
PT RESTING ON BED BED SIDE REPORT GIVEN TO ONCOMING NURSE
[2019-07-06] MEDS: DONEPEZIL HCL 5 MG TAB PO SCH (23:08)
[2019-07-06] MEDS: FINASTERIDE 5 MG TAB PO SCH (23:08)
--- NOTE | 2019-07-06 23:53 | NUR ---
DR GAYTAN CALLED B/P LOW. REPORT PT NOT VOIDING. NEW ORDERS RECEIVED TO START IV NS AT 75 ML/HR AND INSERT HERNÁNDEZ. WILL CONTINUE TO MONITOR B/P AND VS.
[2019-07-07] VITALS (16 sets, daily range): BP systolic 75–100; BP diastolic 33–65
[2019-07-07] MEDS ORDERED: ONDANSETRON HCL INJ 2MG/ML 2ML 2 MG/ML VIAL IV PRN (00:15)
[2019-07-07] MEDS ORDERED: ONDANSETRON HCL 4 MG ORAL DISINTEGRATING TAB PO PRN (00:15)
[2019-07-07] MEDS ORDERED: ACETAMINOPHEN 325 MG TAB PO PRN (00:15)
[2019-07-07] MEDS: SODIUM CHLORIDE 0.9% 1000ML 1,000 ML IV SCH ×3 (00:57→17:47)
[2019-07-07] MEDS: MIDODRINE 2.5 MG TAB PO SCH ×4 (01:06→17:58)
[2019-07-07] MEDS: INSULIN LISPRO 100 UNIT/1 ML 3ML VIAL SQ SCH ×4 (06:00→18:09)
[2019-07-07] MEDS: PIPER-TAZ 3.375 GM 50 ML IV SCH ×3 (06:07→17:58)
[2019-07-07 06:43] LABS: BASOPHILS % 0.3 % (0.0-1.0); EOSINOPHILS # (AUTO) 0.1 (0.0-0.4); EOSINOPHILS % 0.9 % (0.0-6.0); HEMATOCRIT 19.9 % (38.2-49.6); LYMPHOCYTES % 10.8 % (18.0-39.1); MEAN CORPUSCULAR HEMOGLOBIN 30.7 pg (28-32); MEAN CORPUSCULAR HGB CONC 32.7 g/dL (31-35); MEAN CORPUSCULAR VOLUME 93.9 fL (81-99); MONOCYTES # (AUTO) 0.7 (0.2-0.8); MONOCYTES % 7.4 % (4.4-11.3); NEUTROPHILS # (AUTO) 7.2 (2.1-6.9); NEUTROPHILS % 76.6 % (38.7-80.0); PLATELET COUNT 226 x10e3/uL (140-360); RED BLOOD COUNT 2.12 x10e6/uL (4.3-5.7); RED CELL DISTRIBUTION WIDTH 20.3 % (11.7-14.4)
[2019-07-07 06:52] LABS: HEMOGLOBIN 6.5 g/dL (14.0-18.0)
[2019-07-07 06:58] LABS: ANION GAP 16.5 mmol/L (8-16); CALCIUM 7.8 mg/dL (8.4-10.2); CREATININE, SERUM 5.3 mg/dL (0.72-1.25)
[2019-07-07 07:02] LABS: POTASSIUM 5.5 mmol/L (3.5-5.1)
--- NOTE | 2019-07-07 07:21 | NUR ---
DR GAYTAN CALLED HGB ON 07/04 20 WAS 6.7 HCT 20.1. HGB TODAY WAS 6.5 HCT 19.9. REPORTED HERNÁNDEZ OUTPUT ONLY 100 ML BLOODY TO BROWN COLOR. DR GAYTAN SAID" OK, DON'T WORRY ABOUT IT." REPORTED B/P IMPROVED 100/54 HR 70.
--- NOTE | 2019-07-07 07:25 | NUR ---
BEDSIDE SHIFT REPORT RECEIVED FROM PM NURSE. PT AWAKE, ALERT, NO SIGNS OF DISTRESS, IN STABLE CONDITION.
[2019-07-07] MEDS ORDERED: FUROSEMIDE INJ 10 MG/ML 4 ML VIAL IV ONE ×2 (09:00→09:45)
--- NOTE | 2019-07-07 09:20 | NUR ---
spoke with JENNIFER Cevallos for Dr. Valiente at bedside. she states give pt 1 dose of IV Lasix (40 mg) for fluid overload. states pt's rate of IV fluid can be decreased if Dr. Chowdary agrees. no other new orders given.
[2019-07-07] MEDS: MEMANTINE 10 MG TAB PO SCH ×2 (10:42→17:58)
[2019-07-07] MEDS: TAMSULOSIN HCL 0.4 MG CAP PO SCH (10:43)
--- NOTE | 2019-07-07 13:03 | NUR ---
FROM [facility], WILL NEED TO SEND CLINICALS AND GET APPROVAL PRIOR TO SENDING BACK TO FACILITY.
[2019-07-07] MEDS: IRON SUCROSE 100 MG in SODIUM CHLORIDE 0.9% 100 ML 100 ML IV SCH (14:47)
--- NOTE | 2019-07-07 15:29 | NUR ---
Nutrition Screen Note RD Recommendation for Physician: - Recommend cardiac/ADA 1800 diet Plan of Care: RD following, monitoring for tolerance and adequacy Nutrition reason for involvement: follow up Primary Diagnose(s): obstructive jaundice, likely due to choledocholithiasis PMH: GERD, PVD, CKD, CAD, CHF, dyslipidemia, stroke, dementia, DM Ht: 66in Wt: 175lb BMI: N/A due to R AKA IBW: 120lb +/- 10% Adjusted based on R AKA RD Assessment: 07/06: Follow up. Chart reviewed. Pt was advanced to a cardiac diet yesterday. It is recorded that pt consumed 50-75% of his meals yesterday and is tolerating the diet per RN. Will continue to monitor unless consulted sooner. (06/30) Chart reviewed. Labs and meds reviewed. 84yo M, who was admitted from [facility] for jaundice and elevated liver enzymes. Visited pt in the room. Pt tolerated clear liquid diet. No complains of nausea or vomiting. LBM 06/29. Unable to obtain weight hx. Pt appeared well-nourished. Plan to have ERCP on Wednesday and possible cholecystectomy. Will continue to monitor and follow. Current Diet: cardiac diet Malnutrition Evaluation (07/01/2019) The patient does not meet criteria for a specified degree of malnutrition at this time. Will re-evaluate at follow-up as appropriate. Diet Education Needs Assessment: Diet education not indicated. Nutrition Care Level: low Signed: Lilia Duarte, RD, LD
--- NOTE | 2019-07-07 17:53 | NUR ---
PT'S BLOOD PRESSURE 78/43; CALLED DR. GAYTAN AND INFORMED HIM PT HAS VERY WET SOUNDING LUNG SOUNDS AND APPEARS TO BE IN FLUID OVERLOAD. DR. GAYTAN STATES PT NEEDS TO MOVED TO ICU. STATES KEEP PT'S FLUIDS AT 125 ML/HR AND KEEP BLOOD PRESSURE 100 SYSTOLIC. CALLED [employer] TO INITIATE UNIT TRANSFER OF PT.
--- NOTE | 2019-07-07 19:12 | NUR ---
DAY RN CALLED DR GAYTAN ABOUT B/P AND U/O. NEW ORDERS RECEIVED TO SEND PT TO ICU OR IMCU FOR VASOPRESSORS. BREATH SOUNDS CRACKLES BILATERALLY ON EXPIRATION. O2 SAT ON 2L 100 % HR 83.PT SLEEPY BUT RESPONSIVE TO VERBAL STIMULI. ACCUCHECK 214.
--- NOTE | 2019-07-07 19:28 | Diagnostic Imaging Report ---
CT Abdomen and Pelvis without contrast INDICATION ^ARF, ANURIA, CHECK HERNÁNDEZ POSITION, S/P DMITRY ^[id number] ^185 TECHNIQUE: Thin collimation axial images obtained from the diaphragm to the level of the pubic symphysis without nonionic intravenous contrast. Dose reduction techniques used: Automated exposure control, adjustment of the mAs and/or kVp according to patient size, standardized low-dose protocol, and/or iterative reconstruction technique. RADIATION DOSE: Total DLP: 824.18 mGy*cm Estimated effective dose: (DLP x 0.015 x size factor) mSv CTDIvol has been reviewed. It is below the limits set by the Radiation Protocol Committee (RPC). COMPARISON: CT abdomen/pelvis 06/30/2019. ABDOMEN FINDINGS: Beam hardening artifact across the abdomen from patient's arm position. Lung Bases: Bilateral posterior layering pleural effusions have developed, measuring 4.2 cm on the right and 3.6 cm zone the left. There are calcified pleural plaques throughout the visualized chest. The heart is enlarged with pacemaker wires in the right atrium and right ventricle. There are calcified hilar lymph nodes. The cardiac mcgowan are visualized suggestive of anemia. Heavy coronary artery calcifications and calcifications of the left ventricle are redemonstrated. No pericardial effusion. Liver: No evidence of mass. Gallbladder: Absent. Biliary tree: Bile duct dilatation is no longer visualized. Pneumobilia in the left lobe and in portions of the common bile duct. Pancreas: Atrophic. No ductal dilatation. Calcification in the posterior aspect of the pancreas tail is stable and may be vascular in etiology. Spleen: Normal size without mass. Adrenal Glands: No evidence for mass. Kidneys: Right: No renal calculus. Stable medial upper pole cyst. No hydronephrosis. Left: No renal calculus. Intracortical low attenuating lesion the lower pole is redemonstrated and appears solid. This measures approximately 2.5 x 2.6 cm. No hydronephrosis Lymph Nodes: No enlarged abdominal or periaortic lymph nodes. Aorta: Heavily calcified. No aneurysmal dilatation. Calcified renal artery origins. PELVIS FINDINGS: Bowel: Stomach: Collapsed but otherwise normal. Small Bowel: The duodenum is distended with fluid and air with mildly prominent mcgowan and. Duodenal inflammation. Remainder of the small bowel is normal in diameter with normal wall thickness.. Large Bowel: Barium mixed with stool in the right colon, sigmoid colon and rectum. No dilatation or focal mural thickening. Appendix: Normal. Bladder: Collapsed or on a Hernández catheter. The bladder mcgowan are thickened.. Ureters: No ureteral dilatation or calculus. Peritoneum/retroperitoneum: Small amount of abdominopelvic ascites. No loculated fluid collection. No free air. Soft tissues: Diffuse subcutaneous edema. Midline laparotomy don and right upper quadrant skin don. Bilateral fat-containing hernias, right larger than left. Fat along the left spermatic cord. Bones: Diffusely demineralized. Hemangiomas in T12 and L2. IMPRESSION: 1. Status post cholecystectomy with pneumobilia. 2. Distention and inflammation of the duodenum. This may represent duodenitis. No evidence of bowel obstruction. 3. Solid mass in the lower pole of the left kidney is suggestive of renal cell carcinoma. 4. Hernández catheter within the urinary bladder. Diffuse bladder wall thickening is suggestive of outlet obstruction secondary to prostate hypertrophy. 3. Anasarca. Signed by: Dr. Abelino Agrawal MD on 07/07/2019 7:25 PM
--- NOTE | 2019-07-07 20:00 | NUR ---
BEDSIDE SHIFT REPORT RECEIVED FROM DAY RN. PT SLEEPY BUT RESPOND TO TACTILE AND VOICE. O2 AT 2L PER N/C. CONTINUOUS PULSE OX ON. RESPIRATIONS ARE REGULAR AND UNLABORED. TELE ON. ABDOMEN IS DISTENDED- BOWEL SOUNDS PRESENT. TROCAR SITES S/P LAP DMITRY HAD OLD BLOODY DRAINAGE PRESENT. BBS LEAR ON INSPIRATION BUT CRACKLES ON EXPIRATION.20 G LEFT FA. CALLLIGHT WITHIN REACH. BED LOCKED AND IN LOW POSITION.DENIES PAIN.
[2019-07-07] MEDS ORDERED: SENNA-S TABLET PO SCH (21:00)
[2019-07-07] MEDS ORDERED: FUROSEMIDE INJ 10 MG/ML 4 ML VIAL IV SCH (21:00)
--- NOTE | 2019-07-07 21:15 | NUR ---
REPORT CALLED TO [facility]. TRANSPORTED PT TO ICU WITH BELONGINGS. NOTIFIED FAMILY MEMBER SHAD DAUGHTER OF TRANSFER.
--- NOTE | 2019-07-07 21:23 | Progress Note ---
DATE: 07/07/2019 GI Progress Report SUBJECTIVE: The patient reported to have distended abdomen and scrotal swelling. He has not had any bowel movement. He is currently being transferred to ICU due to hypotension. REVIEW OF SYSTEMS: GENERAL: Weakness, lethargy. CVS: No chest pain or palpitation. RESPIRATORY: No cough or expectoration. MEDICATIONS: Insulin lispro, midodrine, memantine, piperacillin/tazobactam 3.375 mg IV q.6 hours, normal saline at 125 mL an hour, tamsulosin 0.4 mg daily, finasteride 5 mg p.o. at bedtime, furosemide 40 mg IV q.12 hours, Zofran 4 mg IV q.4 hours, acetaminophen 650 mg p.o. q.6 hours as needed, [place] 5 mg/325 mg p.o. q.4 hours as needed. PHYSICAL EXAMINATION: VITAL SIGNS: Temperature 98.4, pulse 74, respirations 20, blood pressure 92/33, oxygen saturation 99% on room air. GENERAL: Appears to be lethargic and drowsy. Oral mucosa is moist. CVS: S1, S2. Regular. LUNGS: Bilateral scattered rales. ABDOMEN: Distended incisional tenderness in right upper quadrant, more gaseous distention. Bowel sounds hypoactive. No rebound, rigidity or any peritoneal signs. EXTREMITIES: Right AKA. Left leg trace edema. LABORATORY DATA: WBC 9.34, hemoglobin 6.5 from 6.7 two days ago, high hematocrit 19.9, platelet count 226. Sodium 136, potassium 5.5, chloride 109, bicarb 16, BUN 58, creatinine 5.30, which is up from 3.06, glucose 164. No liver enzymes done. CT scan of the abdomen and pelvis without contrast showed: 1. Status post cholecystectomy with pneumobilia. 2. Distention and inflammation of the duodenum. This may represent duodenitis. No evidence of bowel obstruction. 3. Solid mass in the lower pole of the left kidney suggestive of renal cell carcinoma. 4. Martinez's catheter within the urinary bladder. Diffuse bladder wall thickening is suggestive of outlet obstruction secondary to prostate hypertrophy. 5. Generalized anasarca. 6. Barium mixed with stool in the right colon, sigmoid colon and rectum. No dilatation or focal mural thickening. IMPRESSION: 1. Choledocholithiasis status post endoscopic retrograde cholangiopancreatography, sphincterotomy with balloon sweep resulted into removal of lot of pus and sludge. This was done on 07/03/2019. 2. Laparoscopic cholecystectomy on 07/04/2019, postoperative day #3. 3. Elevated liver enzymes, this needs to be trended. 4. Acute blood loss anemia post surgery post endoscopic retrograde cholangiopancreatography and sphincterotomy. 5. Orthodoxy. Therefore, the patient cannot get blood transfusion. 6. Abdominal distention with finding suggestive of duodenitis, stool retention in the colon. 7. Left renal cell mass. PLAN: 1. Agree to transfer the patient in the ICU for better monitoring of the hemodynamics. Continue broad-spectrum intravenous antibiotic. The patient is currently getting IV piperacillin/tazobactam. Monitor liver enzymes. Bowel regimen for constipation. 2. Monitor him clinically. Bijan Ratliff MD SA/JA /[id number]
[2019-07-07] MEDS: FINASTERIDE 5 MG TAB PO SCH (21:29)
[2019-07-07] MEDS: DONEPEZIL HCL 5 MG TAB PO SCH (21:30)
[2019-07-07 23:47] LABS: ALBUMIN 1.8 g/dL (3.5-5.0); ALBUMIN/GLOBULIN RATIO 0.6 (0.8-2.0); ANION GAP 17.2 mmol/L (8-16); CALCIUM 7.2 mg/dL (8.4-10.2); CREATININE, SERUM 5.48 mg/dL (0.72-1.25); POTASSIUM 5.2 mmol/L (3.5-5.1)
[2019-07-08] VITALS (33 sets, daily range): BP systolic 63–128; BP diastolic 40–66
[2019-07-08 00:53] LABS: BASOPHILS % 0.3 % (0.0-1.0); EOSINOPHILS % 0.4 % (0.0-6.0); HEMATOCRIT 19.7 % (38.2-49.6); LYMPHOCYTES # (AUTO) 1.1 (1.0-3.2); LYMPHOCYTES % 9.6 % (18.0-39.1); MEAN CORPUSCULAR HEMOGLOBIN 30.3 pg (28-32); MEAN CORPUSCULAR VOLUME 94.7 fL (81-99); MONOCYTES # (AUTO) 1.1 (0.2-0.8); NEUTROPHILS # (AUTO) 8.4 (2.1-6.9); PLATELET COUNT 235 x10e3/uL (140-360); RED BLOOD COUNT 2.08 x10e6/uL (4.3-5.7); RED CELL DISTRIBUTION WIDTH 20.5 % (11.7-14.4)
[2019-07-08 01:11] LABS: HEMOGLOBIN 6.3 g/dL (14.0-18.0)
[2019-07-08 01:15] LABS: INR 1.36; PARTIAL THROMBOPLASTIN TIME 33.9 seconds (23.8-35.5); PROTHROMBIN TIME 17.7 seconds (11.9-14.5)
[2019-07-08] MEDS: PIPER-TAZ 3.375 GM 50 ML IV SCH ×5 (01:15→23:50)
--- NOTE | 2019-07-08 01:20 | NUR ---
SPOKE TO DR. GAYTAN REGARDING PT'S STATUS AND LOW BP. RECEIVED ORDERS FOR DOPAMINE GTT, ASKED ABOUT CRITICAL CARE COMMANDING OFFICER MOTORIZED SQUAD CONSULT AND CENTRAL LINE PLACEMENT. DR. GAYTAN SAID NO TO BOTH AT THIS TIME.
[2019-07-08 01:36] LABS: BILIRUBIN,DIRECT 4.2 mg/dL (0.0-0.5)
[2019-07-08] MEDS: SODIUM CHLORIDE 0.9% 1000ML 1,000 ML IV SCH ×2 (01:45→11:17)
[2019-07-08 05:34] LABS: ALBUMIN/GLOBULIN RATIO 0.6 (0.8-2.0); ANION GAP 20.2 mmol/L (8-16); CALCIUM 7.7 mg/dL (8.4-10.2); CREATININE, SERUM 6.4 mg/dL (0.72-1.25)
[2019-07-08 05:37] LABS: POTASSIUM 6.2 mmol/L (3.5-5.1)
[2019-07-08 05:40] LABS: BASOPHILS % 0.2 % (0.0-1.0); EOSINOPHILS # (AUTO) 0.1 (0.0-0.4); EOSINOPHILS % 0.4 % (0.0-6.0); HEMATOCRIT 21.7 % (38.2-49.6); HEMOGLOBIN 7.1 g/dL (14.0-18.0); LYMPHOCYTES # (AUTO) 0.9 (1.0-3.2); LYMPHOCYTES % 7.7 % (18.0-39.1); MEAN CORPUSCULAR HGB CONC 32.7 g/dL (31-35); MEAN CORPUSCULAR VOLUME 97.7 fL (81-99); MONOCYTES # (AUTO) 0.8 (0.2-0.8); MONOCYTES % 6.3 % (4.4-11.3); NEUTROPHILS # (AUTO) 9.8 (2.1-6.9); NEUTROPHILS % 80.7 % (38.7-80.0); PLATELET COUNT 252 x10e3/uL (140-360); RED BLOOD COUNT 2.22 x10e6/uL (4.3-5.7); RED CELL DISTRIBUTION WIDTH 20.9 % (11.7-14.4)
[2019-07-08] MEDS: INSULIN LISPRO 100 UNIT/1 ML 3ML VIAL SQ SCH ×4 (06:00→19:16)
--- NOTE | 2019-07-08 07:23 | Diagnostic Imaging Report ---
EXAMINATION: CHEST SINGLE (PORTABLE) INDICATION: ^CHF, ARF ^[id number] ^0530 ^Y COMPARISON: 06/30/2019 FINDINGS: AP view TUBES and LINES: Stable dual-lead left chest wall cardiac device. LUNGS: Limited by body habitus and low lung volumes. Pulmonary vascular congestion. Left lower lung field opacification, increased from prior exam. PLEURA: No visible pneumothorax. Small left pleural effusion. HEART AND MEDIASTINUM: The cardiomediastinal silhouette is enlarged. Median sternotomy wires. BONES AND SOFT TISSUES: No acute osseous lesion. Soft tissues are unremarkable. UPPER ABDOMEN: No free air under the diaphragm. IMPRESSION: Pulmonary vascular congestion. Increased left basilar opacification, probably small effusion/atelectasis. Underlying pneumonia cannot be excluded in the appropriate clinical context. Signed by: Dr. Hermes Bolton MD on 07/08/2019 7:19 AM
[2019-07-08] MEDS: MIDODRINE 2.5 MG TAB PO SCH ×3 (08:38→17:59)
[2019-07-08] MEDS ORDERED: SOD POLYSTYRENE SULFONATE SUSP 15 GM/60 ML BTL PO ONE (09:00)
[2019-07-08] MEDS ORDERED: POLYETHYLENE GLYCOL 3350 17 GM PACK PO SCH (09:00)
[2019-07-08] MEDS: TAMSULOSIN HCL 0.4 MG CAP PO SCH (09:00)
[2019-07-08] MEDS: MEMANTINE 10 MG TAB PO SCH ×2 (09:17→17:04)
--- NOTE | 2019-07-08 11:11 | Consultation ---
DATE OF CONSULTATION: Critical Care Consultation REASON FOR CONSULT: ICU management. CHIEF COMPLAINT: Mr. Forrester is an 84-year-old male, who presented with worsening jaundice. He initially came from [facility]. His total bilirubin initially was 11.8. Common bile duct stone obstruction and obstructive jaundice were the initial diagnosis. The patient remained on the medical floor from 06/30 till last night of 07/08/2019. He was transferred to ICU for worsening renal failure and hypotension. The patient underwent ERCP and sphincterotomy with balloon sweep resulting in removal of passed and sludge that was done on 07/03/2019. Also, had laparoscopic cholecystectomy on 07/03. He is Jehovah witness and his hemoglobin is low and no transfusion has been done. The patient is on IV Zosyn since 06/29. Urine culture, no growth. He is confused and is unable to give me any history. According to the chart, the patient possibly has Alzheimer disease as well. He has chronic systolic heart failure, ejection fraction is 25%, and history of CABG in 2012. The patient has history of CKD. His creatinine when he came in was 1.29 and it is now up to 6.4 with metabolic acidosis and anion gap of 20. His bicarbonate is 13 and potassium is 6.2. REVIEW OF SYSTEMS: Unable to elicit a detailed review of system from the patient because of his mental status. PAST MEDICAL HISTORY: Chronic systolic heart failure, chronic kidney disease, right AKA, AICD, history of CABG, carotid endarterectomy, and history of hemorrhagic stroke. FAMILY AND SOCIAL HISTORY: He is a resident for [facility]. PHYSICAL EXAMINATION: VITAL SIGNS: Temperature 96.9, pulse of 83, and blood pressure is 113/57. He is on Levophed. HEENT: Head is atraumatic and normocephalic. NECK: Supple. CHEST: The patient appears to be fluid overloaded. Chest is clear. Decreased air entry on the bases. HEART: S1 and S2 audible. ABDOMEN: Soft. EXTREMITIES: Pedal edema and AKA. NEUROLOGICAL: He is awake, but confused. LABORATORY DATA: Chest x-ray showing cardiomegaly. No focal infiltrate. CT abdomen and pelvis was done yesterday, showing status post cholecystectomy with pneumobilia, distention, inflammation of the duodenum. Martinez catheter with urinary bladder, diffuse urinary bladder thickening. Other labs; sodium 136, potassium 6.2, chloride 109, BUN 79, and creatinine 6.4. White count of 12,000, hemoglobin 7.1, and platelets 252. ASSESSMENT/PLAN: Mr. Forrester is an 84-year-old male, who was initially admitted with painless jaundice, found to have choledocholithiasis and cholangitis, underwent ERCP and cholecystectomy, now transferred to ICU with hypotension and worsening renal failure. The patient has been started on IV hydration. Current problems: 1. Septic shock, likely source is GI, cholangitis. 2. Acute kidney injury on chronic kidney disease. 3. Chronic systolic heart failure, ejection fraction 25%. 4. History of coronary artery disease and coronary artery bypass grafting. 5. Diabetes. 6. Poor functional status. 7. Severe anemia. The patient is Holiness, cannot be transfused. 8. Peripheral arterial disease. 9. Benign prostatic hyperplasia. 10. Possible vascular dementia. PLAN: 1. I will ask Interventional Radiology to place the hemodialysis catheter. Nephrology has been consulted. The patient has metabolic acidosis and has mental status changes, unsure about the baseline. May need hemodialysis. 2. Vasopressors as needed. The patient was on dopamine, which has been weaned off now. May need to support the blood pressure. 3. He is on IV Zosyn. I will change to IV meropenem and Flagyl for GI source. 4. Hold off on the Lovenox for DVT prophylaxis because of severe anemia and the patient is Jehovah witness. We will continue the patient on IV normal saline at 125 mL an hour. Daughter was called by the RN when I was sitting here and she at this point want all measures. The patient is full code. Critical care time spent 50 minutes. Thank you for this consult. MD BAYRON Murillo/JA /[id number]
[2019-07-08] MEDS ORDERED: DEXTROSE 50% SYRINGE 50 ML IV ONE (14:15)
[2019-07-08] MEDS ORDERED: INSULIN REGULAR, HUMAN 100 UNIT/1 ML 3ML VIAL IV ONE (14:30)
[2019-07-08] MEDS ORDERED: FUROSEMIDE INJ 10 MG/ML 2 ML VIAL IV ONE (14:30)
[2019-07-08] MEDS: METRONIDAZOLE 500MG/NS 100ML 100 ML IV SCH ×2 (15:00→22:45)
[2019-07-08] MEDS ORDERED: HEPARIN SOD (PORCINE) 1000 UNIT/ML SDV ONE ×2 (16:42→22:09)
--- NOTE | 2019-07-08 17:56 | Diagnostic Imaging Report ---
EXAMINATION: CHEST SINGLE (PORTABLE) INDICATION: ^S/P Hemodialysis cath placement ^[id number] ^1700 ^Y COMPARISON: 07/08/2019 FINDINGS: AP view TUBES and LINES: Stable triple lead left chest wall cardiac device. Right IJ dialysis catheter in place with tip projecting over inferior SVC. LUNGS: Low lung volumes. Bilateral airspace opacities. PLEURA: Small left pleural effusion. HEART AND MEDIASTINUM: The cardiomediastinal silhouette is enlarged, accentuated by low lung volumes. Median sternotomy wires. BONES AND SOFT TISSUES: No acute osseous lesion. Soft tissues are unremarkable. UPPER ABDOMEN: No free air under the diaphragm. IMPRESSION: Interval placement of right internal jugular dialysis catheter with tip projecting over inferior SVC. No visible pneumothorax. Limited study by low lung volumes. Bilateral airspace opacities, representing edema and/or pneumonia. Small left pleural effusion. Signed by: Dr. Hermes Bolton MD on 07/08/2019 5:52 PM
--- NOTE | 2019-07-08 19:43 | Consultation ---
DATE OF CONSULTATION: Initial Nephrology Consultation Report REASON FOR CONSULTATION: Progressive renal failure. HISTORY OF PRESENT ILLNESS: Mr. Forrester is an 84-year-old male, who was admitted here several days ago. He was admitted with jaundice. He had a bilirubin that was elevated about 11 and he was noted to have a common choledocholithiasis. I have been asked to see him because his serum creatinine has been rising since he was admitted. When he was admitted, his serum creatinine was about 1.29, it was 1.22 the next day and since that time it has been rising. Today, his serum creatinine is actually 6.4. The patient underwent an ERCP and sphincterotomy for the choledocholithiasis. The patient also has other medical issues. PAST MEDICAL HISTORY: Includes history of Alzheimer, history of systolic heart failure, history of coronary artery disease, history of chronic kidney disease and the patient is a Judaism, history of a hemorrhagic stroke in the past, and history of carotid endarterectomy. MEDICATIONS: The patient is on IV fluids right now, sodium chloride saline at 125. He is on Zosyn and Namenda. He is on midodrine, Aricept, Proscar, insulin, Flomax, and Zofran. REVIEW OF SYSTEMS: As above. PHYSICAL EXAMINATION: VITAL SIGNS: Blood pressure 95/51, pulse 84, the patient is on dopamine. GENERAL: He is awake. He is jaundiced. HEENT: No increased JVD. CARDIOVASCULAR: Regular rate and rhythm. LUNGS: Decreased sounds at bases. Some crackles at the bases. ABDOMEN: Soft. EXTREMITIES: The patient has some edema of the arms, very mild and minimal edema of the legs. He is jaundiced. LABORATORY RESULTS: Hemoglobin and hematocrit are 7 and 21 respectively, white count is 12,000, and platelet count 252,000. Sodium 136, potassium 6.2, chloride 109, bicarbonate 13, anion gap 20, BUN and creatinine 79 and 6.4 respectively. Calcium is 7.7. Total bilirubin of 5.9. Albumin is 2.0. Urinalysis on admission shows 3+ bilirubin, 1+ protein, no red cells, moderate bacteria. Urine culture showed no growth. Blood culture is pending. IMPRESSION/PLAN: 1. Acute kidney injury, superimposed on chronic kidney disease. 2. Septic shock. 3. Shock. 4. Obstructive jaundice. 5. Fluid overload. 6. Pulmonary congestion. 7. Systolic heart failure. 8. Hyperkalemia. 9. Metabolic acidosis. 10. Anemia. 11. Jehovah witness. PLAN: The patient has multiple medical problems. He is now into renal failure, most likely etiology is multifactorial and include going into shock in a patient, who already has decreased effective renal blood flow because of his heart failure. He may be in a state of sepsis/SIRS. I will check venous blood gas to confirm metabolic acidosis. He is hyperkalemic also. A Marcos will need to be placed. He will need to be dialyzed. Hopefully, he can tolerate conventional hemodialysis. He is a Jehovah witness, so we cannot give him a blood transfusion, instead started with IV contrast should be avoided. Urine culture is still pending. Of note, the patient did get a CT of the abdomen and pelvis on admission that did use IV contrast. This may also be due to contrast-induced nephrotoxicity. the patient's prognosis is significantly poor to guarded. We will check a venous blood gas to make confirm it is metabolic acidosis and not respiratory alkalosis with metabolic concentration. I think we stopped the IV fluids since he already has some pulmonary congestion. I will give him one dose of Lasix as well to help with hyperkalemia and also the pulmonary congestion. Ultimately, he will need dialysis. Thank you, Dr. Chowdary, for this consultation. Ather MD SHERLEY Angel/JA /[id number]
[2019-07-08] MEDS ORDERED: SODIUM CHLORIDE 0.9% 1000ML 2,000 ML ONE (20:18)
[2019-07-08] MEDS ORDERED: AMIODARONE HCL 100 ML IV ONE (20:26)
[2019-07-08] MEDS ORDERED: AMIODARONE HCL 150MG 100 ML IV ONE (20:30)
[2019-07-08] MEDS ORDERED: MANNITOL 25% 12.5GM/50ML 100 ML ONE (20:34)
[2019-07-08] MEDS ORDERED: MAGNESIUM SULFATE 2GM/50ML 50 ML IV ONE ×2 (21:00→21:14)
[2019-07-08] MEDS ORDERED: LIDOCAINE 2GM/D5W 500ML 500 ML IV PRN (21:00)
[2019-07-08] MEDS ORDERED: HEPARIN SOD (PORCINE) 1000 UNIT/ML SDV IV PRN (21:00)
[2019-07-08] MEDS: DONEPEZIL HCL 5 MG TAB PO SCH (21:00)
[2019-07-08] MEDS: FINASTERIDE 5 MG TAB PO SCH (21:00)
[2019-07-08] MEDS ORDERED: SODIUM CHLORIDE 0.9% 1000ML 2,000 ML IV PRN (21:00)
[2019-07-08] MEDS ORDERED: LIDOCAINE HCL 2% 100 MG/5 ML IV ONE (21:00)
[2019-07-08] MEDS ORDERED: MANNITOL 25% 12.5GM/50 ML VIAL IV PRN (21:00)
[2019-07-08 21:08] LABS: BASOPHILS % 0.1 % (0.0-1.0); LYMPHOCYTES # (AUTO) 0.7 (1.0-3.2); LYMPHOCYTES % 5.3 % (18.0-39.1); MEAN CORPUSCULAR HEMOGLOBIN 30.8 pg (28-32); MEAN CORPUSCULAR HGB CONC 32.2 g/dL (31-35); MEAN CORPUSCULAR VOLUME 95.8 fL (81-99); MONOCYTES # (AUTO) 0.8 (0.2-0.8); NEUTROPHILS # (AUTO) 11.6 (2.1-6.9); PLATELET COUNT 273 x10e3/uL (140-360); RED BLOOD COUNT 2.14 x10e6/uL (4.3-5.7); RED CELL DISTRIBUTION WIDTH 20.5 % (11.7-14.4)
[2019-07-08] MEDS ORDERED: LIDOCAINE 2GM/D5W 500ML 500 ML IV ONE (21:14)
[2019-07-08] MEDS ORDERED: AMIODARONE 900MG 500 ML IV PRN (21:15)
[2019-07-08 21:17] LABS: HEMOGLOBIN 6.6 g/dL (14.0-18.0)
[2019-07-08 21:18] LABS: HEMATOCRIT 20.5 % (38.2-49.6)
--- NOTE | 2019-07-08 21:30 | NUR ---
PT HAD 9 SEPARATE RUNS OF V-TACH VARYING BEAT LENGTHS BETWEEN [id number], WITH ONE WITNESSED ICD DEFIBRILLATION AT 2005. DR. Ida HAQUE PAGED AT 2011, RN SPOKE TO DR. HARRY AND DR. Francis GAYTAN AT 2012 AND 2014, RESPECTIVELY, TO UPDATE THEM ON PATIENT'S STATUS. SPOKE TO DR. HOME HAQUE AT 2019 AND AGAIN AT 2052. MULTIPLE MEDICATION ORDERS OBTAINED AND IMPLEMENTED, WELL LAB ORDERS AND 12 LEAD EKG. AT 2124 DR. Ida HAQUE ROUNDED ON PATIENT AND UPDATED ON HIS STATUS. AT THIS TIME RN INFORMED HIM OF CURRENT LABS INCLUDING CRITICAL HGB AND POSITIVE TROPONIN. PROGRESS NOTE ON CHART FROM DR. Ida HAQUE. AT THIS TIME PT STABLE WITH NO OTHER EPISODES OF IRREGULAR HEART RATES, AND NO ADDITIONAL ORDERS FROM DR. Ida HAQUE. HEMODIALYSIS INITIATED AT 2103.
[2019-07-08 21:35] LABS: ALBUMIN 1.9 g/dL (3.5-5.0); ALBUMIN/GLOBULIN RATIO 0.6 (0.8-2.0); ANION GAP 22.1 mmol/L (8-16); CALCIUM 7.8 mg/dL (8.4-10.2); CREATININE, SERUM 7.21 mg/dL (0.72-1.25); POTASSIUM 5.1 mmol/L (3.5-5.1)
[2019-07-08 21:42] LABS: CREATINE KINASE MB 4.7 ng/mL (0-5.0)
[2019-07-09] VITALS (25 sets, daily range): BP systolic 89–107; BP diastolic 47–65
[2019-07-09] MEDS: INSULIN LISPRO 100 UNIT/1 ML 3ML VIAL SQ SCH ×4 (00:45→17:30)
[2019-07-09] MEDS ORDERED: HEPARIN SOD (PORCINE) 1000 UNIT/ML SDV IV PRN (01:00)
[2019-07-09] MEDS: PIPER-TAZ 3.375 GM 50 ML IV SCH ×4 (05:15→23:55)
[2019-07-09] MEDS: METRONIDAZOLE 500MG/NS 100ML 100 ML IV SCH ×3 (05:50→22:50)
[2019-07-09 06:23] LABS: BASOPHILS % 0.1 % (0.0-1.0); EOSINOPHILS # (AUTO) 0.1 (0.0-0.4); EOSINOPHILS % 0.4 % (0.0-6.0); LYMPHOCYTES # (AUTO) 0.9 (1.0-3.2); LYMPHOCYTES % 6.3 % (18.0-39.1); MEAN CORPUSCULAR HEMOGLOBIN 31.1 pg (28-32); MEAN CORPUSCULAR HGB CONC 33.7 g/dL (31-35); MEAN CORPUSCULAR VOLUME 92.2 fL (81-99); MONOCYTES % 7.5 % (4.4-11.3); NEUTROPHILS # (AUTO) 11.6 (2.1-6.9); NEUTROPHILS % 83.5 % (38.7-80.0); PLATELET COUNT 280 x10e3/uL (140-360); RED BLOOD COUNT 2.06 x10e6/uL (4.3-5.7); RED CELL DISTRIBUTION WIDTH 20.3 % (11.7-14.4)
[2019-07-09 06:26] LABS: HEMOGLOBIN 6.4 g/dL (14.0-18.0)
[2019-07-09 06:44] LABS: ALBUMIN 1.8 g/dL (3.5-5.0); ALBUMIN/GLOBULIN RATIO 0.6 (0.8-2.0); ANION GAP 20.4 mmol/L (8-16); CALCIUM 7.8 mg/dL (8.4-10.2); CREATININE, SERUM 5.47 mg/dL (0.72-1.25); POTASSIUM 4.4 mmol/L (3.5-5.1)
[2019-07-09] MEDS: MIDODRINE 2.5 MG TAB PO SCH ×3 (07:22→15:08)
[2019-07-09 07:34] LABS: CREATINE KINASE MB 5.8 ng/mL (0-5.0)
--- NOTE | 2019-07-09 08:00 | NUR ---
Troponin 5.92. Dr Nneka Valiente notified. No new orders.
[2019-07-09] MEDS: MEMANTINE 10 MG TAB PO SCH ×2 (08:25→17:00)
[2019-07-09] MEDS: TAMSULOSIN HCL 0.4 MG CAP PO SCH (08:25)
--- NOTE | 2019-07-09 08:32 | Diagnostic Imaging Report ---
Examination: Single AP view of the chest. COMPARISON: July 08, 2019 INDICATION: Obstructive jaundice DISCUSSION: Lines/tubes: Right IJ catheter. A ICD. Lungs: Pulmonary venous congestion. Lung base atelectasis. Pleura: Bilateral effusions. Heart and mediastinum: Prominent heart size. Bones and soft tissues: No acute bony abnormalities. IMPRESSION: 1. Pulmonary venous congestion with bilateral effusions and adjacent atelectasis, stable Signed by: Dr. Ronnell Palma M.D. on 07/09/2019 8:29 AM
--- NOTE | 2019-07-09 08:40 | Diagnostic Imaging Report ---
Examination: Abdominal radiograph COMPARISON: CT July 07, 2019 INDICATION: Distention DISCUSSION: Mildly distended stomach. No dilated loops of bowel. Air filled within the colon. IMPRESSION: Nonobstructive bowel gas pattern Signed by: Dr. Ronnell Palma M.D. on 07/09/2019 8:37 AM
[2019-07-09 10:53] LABS: % IRON SATURATION 35 % (15-50); IRON 62 ug/dL (65-175); TOTAL IRON BINDING CAPACITY 178 ug/dL (261-478); TRANSFERRIN 127 mg/dL (174-364)
[2019-07-09] MEDS ORDERED: FUROSEMIDE INJ 10 MG/ML 4 ML VIAL IV ONE (17:00)
[2019-07-09] MEDS ORDERED: HYDROCODONE/APAP 5MG-325MG TAB PO PRN (17:30)
[2019-07-09] MEDS ORDERED: SEVOFLURANE INHAL SOLN 250 ML PEN BTL ONE (18:40)
[2019-07-09] MEDS ORDERED: ROCURONIUM BROMIDE 10 MG/ML 5ML VIAL IV ONE (18:40)
[2019-07-09] MEDS ORDERED: ONDANSETRON HCL INJ 2MG/ML 2ML 2 MG/ML VIAL ONE (18:40)
[2019-07-09] MEDS ORDERED: DEXAMETHASONE SOD PHOS INJ 4 MG/ML VIAL ONE (18:40)
[2019-07-09] MEDS ORDERED: PROPOFOL IV EMULSION 10 MG/ML 20 ML VIAL ONE (18:40)
[2019-07-09] MEDS ORDERED: LIDOCAINE HCL 2% LOCAL INJ 5 ML SDV VIAL INJ ONE (18:40)
--- NOTE | 2019-07-09 19:24 | NUR ---
Note of shift. Pt remains with no urine output in spite of lasix. Dialysis today was deemed too high of a risk. Monitoring.
[2019-07-09] MEDS: DONEPEZIL HCL 5 MG TAB PO SCH (20:05)
[2019-07-09] MEDS: FINASTERIDE 5 MG TAB PO SCH (20:05)
[2019-07-10] VITALS (59 sets, daily range): BP systolic 74–130; BP diastolic 37–77
[2019-07-10] MEDS: INSULIN LISPRO 100 UNIT/1 ML 3ML VIAL SQ SCH ×5 (00:53→21:15)
[2019-07-10] MEDS: PIPER-TAZ 3.375 GM 50 ML IV SCH ×4 (04:45→23:15)
[2019-07-10 05:19] LABS: BASOPHILS % 0.1 % (0.0-1.0); EOSINOPHILS % 0.1 % (0.0-6.0); LYMPHOCYTES # (AUTO) 0.9 (1.0-3.2); LYMPHOCYTES % 6.3 % (18.0-39.1); MEAN CORPUSCULAR HEMOGLOBIN 30.8 pg (28-32); MEAN CORPUSCULAR HGB CONC 32.5 g/dL (31-35); NEUTROPHILS # (AUTO) 12.2 (2.1-6.9); NEUTROPHILS % 84.8 % (38.7-80.0); PLATELET COUNT 257 x10e3/uL (140-360); RED BLOOD COUNT 2.01 x10e6/uL (4.3-5.7)
[2019-07-10 05:26] LABS: HEMATOCRIT 19.1 % (38.2-49.6); HEMOGLOBIN 6.2 g/dL (14.0-18.0)
[2019-07-10 05:42] LABS: ALBUMIN 1.8 g/dL (3.5-5.0); ALBUMIN/GLOBULIN RATIO 0.6 (0.8-2.0); ANION GAP 21.4 mmol/L (8-16); CALCIUM 7.4 mg/dL (8.4-10.2); CREATININE, SERUM 6.61 mg/dL (0.72-1.25); POTASSIUM 4.4 mmol/L (3.5-5.1)
[2019-07-10] MEDS: METRONIDAZOLE 500MG/NS 100ML 100 ML IV SCH ×3 (06:00→22:05)
[2019-07-10 08:26] LABS: ANISOCYTOSIS MODERATE; POLYCHROMASIA FEW
[2019-07-10 08:30] LABS: PLATELET ESTIMATE ADEQUATE; PLATELET MORPHOLOGY COMMENT RARE EDTA CLUMPING; RBC MORPHOLOGY COMMENT ABNORMAL; TARGET CELLS FEW
--- NOTE | 2019-07-10 08:30 | NUR ---
dr. ashraf at bedside, scrotum elevated per his orders. dr. buck, cardiology, pulm, rounded as well. no new orders.
[2019-07-10] MEDS: MIDODRINE 2.5 MG TAB PO SCH ×3 (08:54→16:42)
[2019-07-10] MEDS: MEMANTINE 10 MG TAB PO SCH ×2 (08:55→16:43)
[2019-07-10] MEDS: TAMSULOSIN HCL 0.4 MG CAP PO SCH (08:55)
[2019-07-10] MEDS ORDERED: EPOETIN ALFA-EPBX 10,000 UNIT/ML VIAL SC SCH (09:00)
--- NOTE | 2019-07-10 10:11 | NUR ---
HD initiated and patient is tolerating HD currently. dopamine remains at 7mcg/kg/min. have not needed to adjust gtt for HD. pt nausea and given zofran iv. no vomiting .
[2019-07-10] MEDS ORDERED: SODIUM CHLORIDE 0.9% 250ML 250 ML ONE (11:44)
--- NOTE | 2019-07-10 14:03 | Diagnostic Imaging Report ---
EXAM: US RENAL RETROPERITONEAL COMP DATE: 07/10/2019 12:55 PM INDICATION: Renal mass on prior CT examination COMPARISON: CT abdomen/pelvis without contrast from 07/07/2019 FINDINGS: The right kidney is normal in size measuring 10.7 x 6.1 x 3.8 cm with cortical thickness of 1.5 cm. Cortical echogenicity is within normal limits. A 2.9 x 3.4 x 3.2 cm simple cyst is identified within the superior pole. There is no evidence for solid renal mass, hydronephrosis, or shadowing calculi. The left kidney is difficult to visualize secondary to the patient's body habitus and inability to comply with optimal breath holding. The left kidney measures 10.0 x 5.9 x 5.6 cm with cortical thickness of 1.6 cm. Cortical echogenicity is within normal limits. Allowing for limitations, no solid renal mass is appreciated sonographically. There is no evidence for hydronephrosis or shadowing calculi. The urinary bladder is collapsed around Martinez catheter. IMPRESSION: Right renal cyst. Otherwise, unremarkable sonographic appearance of the right kidney. Limited evaluation of the left kidney due to patient's body habitus and inability to comply with optimal breath holding. The solid mass noted on the recent prior CT examination is not appreciated sonographically which may be secondary to suboptimal visualization. Consider further evaluation with dedicated renal mass CT or MRI. Signed by: Dr. Elliott Bender MD on 07/10/2019 1:59 PM
[2019-07-10] MEDS ORDERED: CALCIUM GLUCONATE 10% INJ 4.65 MEQ in SODIUM CHLORIDE 0.9% 50ML 50 ML IV ONE (15:00)
--- NOTE | 2019-07-10 20:01 | Progress Note ---
DATE: 07/10/2019 GI Progress Report SUBJECTIVE: The patient reports minimal lower abdominal pain especially at the incision site. He has had no bowel movement today. Tolerating oral diets. He has had a bowel movement for the last two consecutive days. He now has acute kidney injury on chronic kidney disease. He has received the 1st session of dialysis today. REVIEW OF SYSTEMS: GENERAL: Weakness and lethargy. CVS: No chest pain or palpitation. RESPIRATORY: No cough or expectoration. MEDICATIONS: Reviewed as per MAR. He is getting intravenous piperacillin/tazobactam, metronidazole along with other medications. PHYSICAL EXAMINATION: VITAL SIGNS: Temperature 97.9, pulse 80, respirations 18, blood pressure 110/42, and oxygen saturation 100% on 2 L of nasal cannula. GENERAL: Not in any acute distress, oral mucosa is moist. Slightly icteric sclerae. ABDOMEN: Soft, palpable. Incisional tenderness on the right upper quadrant. No rebound, rigidity, or guarding. Positive bowel sounds. LABORATORY DATA: WBC 14.38, hemoglobin down to 6.2 from 6.4, hematocrit 19.1, and platelet count 252. Liver enzymes showed a total bilirubin down to 4.1 from 4.9, AST 34 from 45, ALT 93 from 116, and alkaline phosphatase 296 from 322. Renal ultrasound showed right renal cyst, otherwise unremarkable sonographic appearance of the right kidney. Limited evaluation of the left kidney is due to patient's body habitus and inability to comply with optimal breath-holding. Solid mass noted on the recent prior CT examination is not appreciated sonographically, which may be secondary to suboptimal visualization. Consider further evaluation with dedicated renal mass CT or MRI. IMPRESSION: 1. Symptomatic choledocholithiasis, acute cholecystitis status post ERCP, status post laparoscopic cholecystectomy. 2. Liver enzymes are trending down. Acute blood loss anemia. No active GI bleeding. 3. The patient is Yazidism. 4. Acute kidney injury on chronic kidney disease. PLAN: From GI standpoint. Continue present medical management. Abdominal exam is much better today. Allow oral diet. Liver enzymes are trending down. Rest of the care as per primary team. Bijan Ratliff MD SA/JA /[id number]
[2019-07-10] MEDS: DONEPEZIL HCL 5 MG TAB PO SCH (21:00)
[2019-07-10] MEDS: FINASTERIDE 5 MG TAB PO SCH (21:00)
--- NOTE | 2019-07-10 22:00 | NUR ---
Pt had a large bowel movement at approx 2114. Patient was given bed bath, cleaned and linens changed from [id number]. At that point patient appeared to not be in distress and had no complaints of pain. At 2143 Patient experienced a 24 beat run of V-tach that transitioned into SVT rhythm between 215-230 bpm for approx 11-12 seconds, at which time his defibrillator discharged and the patient returned to his baseline paced rhythm. Dr. Stefan Valiente notified, no new orders at this time.
[2019-07-11] VITALS (25 sets, daily range): BP systolic 97–125; BP diastolic 40–71
[2019-07-11] MEDS: PIPER-TAZ 3.375 GM 50 ML IV SCH ×4 (05:30→23:27)
[2019-07-11] MEDS: METRONIDAZOLE 500MG/NS 100ML 100 ML IV SCH ×3 (06:35→21:13)
[2019-07-11 06:50] LABS: BASOPHILS % 0.1 % (0.0-1.0); EOSINOPHILS # (AUTO) 0.1 (0.0-0.4); EOSINOPHILS % 0.3 % (0.0-6.0); HEMATOCRIT 18.1 % (38.2-49.6); LYMPHOCYTES % 6.6 % (18.0-39.1); MEAN CORPUSCULAR HEMOGLOBIN 30.7 pg (28-32); MEAN CORPUSCULAR HGB CONC 32.6 g/dL (31-35); MEAN CORPUSCULAR VOLUME 94.3 fL (81-99); MONOCYTES # (AUTO) 1.1 (0.2-0.8); MONOCYTES % 7.2 % (4.4-11.3); NEUTROPHILS # (AUTO) 12.4 (2.1-6.9); NEUTROPHILS % 83.9 % (38.7-80.0); PLATELET COUNT 249 x10e3/uL (140-360); RED BLOOD COUNT 1.92 x10e6/uL (4.3-5.7); RED CELL DISTRIBUTION WIDTH 21.2 % (11.7-14.4)
[2019-07-11 07:04] LABS: HEMOGLOBIN 5.9 g/dL (14.0-18.0)
[2019-07-11 07:10] LABS: ALBUMIN 1.6 g/dL (3.5-5.0); ALBUMIN/GLOBULIN RATIO 0.6 (0.8-2.0); ANION GAP 19.1 mmol/L (8-16); CALCIUM 7.1 mg/dL (8.4-10.2); CREATININE, SERUM 4.98 mg/dL (0.72-1.25); POTASSIUM 4.1 mmol/L (3.5-5.1)
[2019-07-11] MEDS: INSULIN LISPRO 100 UNIT/1 ML 3ML VIAL SQ SCH ×4 (08:15→21:00)
[2019-07-11] MEDS ORDERED: AMIODARONE HCL 900 MG in DEXTROSE 5% 500ML 500 ML IV SCH (09:45)
[2019-07-11] MEDS ORDERED: AMIODARONE HCL 900 MG in DEXTROSE 5 % 500ML BOTTLE 500 ML IV SCH (10:30)
[2019-07-11] MEDS: TAMSULOSIN HCL 0.4 MG CAP PO SCH (10:35)
[2019-07-11] MEDS: MIDODRINE 2.5 MG TAB PO SCH ×3 (10:35→17:25)
[2019-07-11] MEDS: MEMANTINE 10 MG TAB PO SCH ×2 (10:35→17:16)
[2019-07-11] MEDS ORDERED: SODIUM CHLORIDE 0.9% 50ML 50 ML ONE (10:37)
[2019-07-11] MEDS ORDERED: SODIUM CHLORIDE 0.9% 250ML 250 ML ONE (10:38)
[2019-07-11 10:49] LABS: PHOSPHORUS 5.5 MG/DL (2.3-4.7)
[2019-07-11] MEDS: AMIODARONE HCL 900 MG in DEXTROSE 5% 500ML 500 ML IV SCH (11:07)
--- NOTE | 2019-07-11 19:00 | NUR ---
Bedside report received from Kerry KELLY.
--- NOTE | 2019-07-11 19:59 | NUR ---
HD completed today with 2.3L off. patient tolerated hd well. dopamine titrated to 7mcg/kg/min during hd otherwise stable at 3mcg. generalized edema throughout. instructed pt to elevate upper extremities as much as tolerated. updated family (POA) of plan of care and pt status. pt remains oriented to self. not attempting to get out of bed. pt has poor appetite. encouraging pt to eat at every meal. pt says no, started amiodarone gtt at 0.5mg continuous until dc by cardiology. no arrythmias today. second shift supervisor nsg report given to zaida KELLY.
--- NOTE | 2019-07-11 20:13 | NUR ---
dr. crouch hematology at bedside for new consult this evening.
[2019-07-11] MEDS: DONEPEZIL HCL 5 MG TAB PO SCH (21:13)
[2019-07-11] MEDS: FINASTERIDE 5 MG TAB PO SCH (21:13)
[2019-07-11] MEDS: IRON SUCROSE 200 MG in SODIUM CHLORIDE 0.9% 100 ML 100 ML IV SCH (22:03)
[2019-07-12] VITALS (21 sets, daily range): BP systolic 93–144; BP diastolic 40–70
[2019-07-12] MEDS: METRONIDAZOLE 500MG/NS 100ML 100 ML IV SCH ×3 (05:08→22:32)
[2019-07-12] MEDS: PIPER-TAZ 3.375 GM 50 ML IV SCH ×4 (05:56→23:19)
[2019-07-12 07:37] LABS: BASOPHILS % 0.2 % (0.0-1.0); EOSINOPHILS # (AUTO) 0.1 (0.0-0.4); EOSINOPHILS % 0.3 % (0.0-6.0); LYMPHOCYTES # (AUTO) 0.9 (1.0-3.2); LYMPHOCYTES % 5.2 % (18.0-39.1); MEAN CORPUSCULAR HGB CONC 32.8 g/dL (31-35); MEAN CORPUSCULAR VOLUME 94.4 fL (81-99); MONOCYTES % 6.1 % (4.4-11.3); NEUTROPHILS # (AUTO) 14.4 (2.1-6.9); NEUTROPHILS % 85.8 % (38.7-80.0); PLATELET COUNT 279 x10e3/uL (140-360); RED BLOOD COUNT 2.16 x10e6/uL (4.3-5.7); RED CELL DISTRIBUTION WIDTH 22.2 % (11.7-14.4)
[2019-07-12 07:45] LABS: HEMATOCRIT 20.4 % (38.2-49.6); HEMOGLOBIN 6.7 g/dL (14.0-18.0)
[2019-07-12 07:59] LABS: ALBUMIN 1.8 g/dL (3.5-5.0); ALBUMIN/GLOBULIN RATIO 0.6 (0.8-2.0); ANION GAP 23.2 mmol/L (8-16); CALCIUM 7.2 mg/dL (8.4-10.2); CREATININE, SERUM 5.67 mg/dL (0.72-1.25); MAGNESIUM 2.1 MG/DL (1.3-2.1); PHOSPHORUS 6.5 MG/DL (2.3-4.7); POTASSIUM 4.2 mmol/L (3.5-5.1)
[2019-07-12 08:32] LABS: POLYCHROMASIA FEW; TARGET CELLS FEW
[2019-07-12 08:33] LABS: MICROCYTOSIS SLIGHT; RBC MORPHOLOGY COMMENT ABNORMAL
[2019-07-12 08:34] LABS: PLATELET ESTIMATE ADEQUATE; PLATELET MORPHOLOGY COMMENT FEW EDTA CLUMPING
[2019-07-12] MEDS: EPOETIN ALFA-EPBX 10,000 UNIT/ML VIAL SC SCH ×2 (09:00→22:59)
[2019-07-12] MEDS: INSULIN LISPRO 100 UNIT/1 ML 3ML VIAL SQ SCH ×4 (09:12→20:03)
[2019-07-12] MEDS: CYANOCOBALAMIN 1,000 MCG TAB PO SCH (09:31)
[2019-07-12] MEDS: FOLIC ACID 1 MG TAB PO SCH (09:31)
[2019-07-12] MEDS: ASCORBIC ACID 500 MG TAB PO SCH (09:31)
[2019-07-12] MEDS: MEMANTINE 10 MG TAB PO SCH ×2 (09:31→18:33)
[2019-07-12] MEDS: TAMSULOSIN HCL 0.4 MG CAP PO SCH (09:31)
[2019-07-12] MEDS: AMIODARONE HCL 900 MG in DEXTROSE 5% 500ML 500 ML IV SCH (09:31)
[2019-07-12] MEDS: MIDODRINE 2.5 MG TAB PO SCH ×3 (09:31→18:30)
[2019-07-12] MEDS ORDERED: HEPARIN SOD (PORCINE) 1000 UNIT/ML SDV ONE (18:09)
--- NOTE | 2019-07-12 19:00 | NUR ---
Bedside report received from Matt Oscar RN. Pt currently receiving HD at this time.
--- NOTE | 2019-07-12 19:15 | NUR ---
1.2 L removed with HD per HD nurse report.
--- NOTE | 2019-07-12 19:39 | NUR ---
Dr. Sanchez present and assessing the pt. Retacrit order verified with Dr. Sanchez and pharmacy at this time. Pharmacy to send dose shortly. Addendum: 07/12/19 at 1941 by Amber Peres RN Dr. Sanchez stated she is going to watch the Hgb daily and adjust the next dose as needed, pending the Hgb rising to 7 or higher. (7 is the goal per her report).
--- NOTE | 2019-07-12 19:41 | NUR ---
New order to add glucerna shakes to pts meals per Dr. Sanchez.
[2019-07-12] MEDS: FINASTERIDE 5 MG TAB PO SCH (20:02)
[2019-07-12] MEDS: DONEPEZIL HCL 5 MG TAB PO SCH (20:02)
[2019-07-12] MEDS ORDERED: SODIUM CHLORIDE 0.9% 250ML 250 ML ONE (20:02)
[2019-07-12] MEDS: IRON SUCROSE 200 MG in SODIUM CHLORIDE 0.9% 100 ML 100 ML IV SCH (20:03)
[2019-07-13] VITALS (13 sets, daily range): BP systolic 82–167; BP diastolic 38–73
--- NOTE | 2019-07-13 04:57 | NUR ---
Dressing change to pts left heel and left great toe completed at this time. Pillow cases changed for head/neck and bilateral arms. Pt refused bath but he did allow me to assist him brushing his teeth.
[2019-07-13 05:03] LABS: BASOPHILS % 0.1 % (0.0-1.0); EOSINOPHILS % 0.1 % (0.0-6.0); LYMPHOCYTES # (AUTO) 0.9 (1.0-3.2); LYMPHOCYTES % 5.2 % (18.0-39.1); MEAN CORPUSCULAR HEMOGLOBIN 31.9 pg (28-32); MEAN CORPUSCULAR HGB CONC 31.9 g/dL (31-35); MONOCYTES # (AUTO) 1.1 (0.2-0.8); MONOCYTES % 6.3 % (4.4-11.3); NEUTROPHILS # (AUTO) 15.5 (2.1-6.9); NEUTROPHILS % 85.5 % (38.7-80.0); PLATELET COUNT 265 x10e3/uL (140-360); RED BLOOD COUNT 2.04 x10e6/uL (4.3-5.7); RED CELL DISTRIBUTION WIDTH 23.8 % (11.7-14.4)
[2019-07-13 05:26] LABS: ALBUMIN 1.7 g/dL (3.5-5.0); ALBUMIN/GLOBULIN RATIO 0.6 (0.8-2.0); ANION GAP 20.8 mmol/L (8-16); CALCIUM 7.5 mg/dL (8.4-10.2); CREATININE, SERUM 3.95 mg/dL (0.72-1.25); MAGNESIUM 1.9 MG/DL (1.3-2.1); PHOSPHORUS 5.1 MG/DL (2.3-4.7); POTASSIUM 3.8 mmol/L (3.5-5.1)
[2019-07-13 05:40] LABS: HEMATOCRIT 20.4 % (38.2-49.6); HEMOGLOBIN 6.5 g/dL (14.0-18.0)
[2019-07-13] MEDS: METRONIDAZOLE 500MG/NS 100ML 100 ML IV SCH ×3 (05:40→22:25)
[2019-07-13] MEDS: PIPER-TAZ 3.375 GM 50 ML IV SCH ×4 (05:40→23:56)
--- NOTE | 2019-07-13 07:00 | NUR ---
Bedside report given to Matt Oscar RN.
[2019-07-13] MEDS: INSULIN LISPRO 100 UNIT/1 ML 3ML VIAL SQ SCH ×4 (07:30→20:09)
[2019-07-13 07:32] LABS: ANISOCYTOSIS MODERATE; POLYCHROMASIA MODERATE
[2019-07-13 07:34] LABS: PLATELET ESTIMATE ADEQUATE; PLATELET MORPHOLOGY COMMENT NORMAL; POIKILOCYTOSIS SLIGHT; RBC MORPHOLOGY COMMENT ABNORMAL
[2019-07-13] MEDS: MIDODRINE 2.5 MG TAB PO SCH ×3 (08:00→16:00)
[2019-07-13] MEDS: CYANOCOBALAMIN 1,000 MCG TAB PO SCH (08:20)
[2019-07-13] MEDS: TAMSULOSIN HCL 0.4 MG CAP PO SCH (08:20)
[2019-07-13] MEDS: FOLIC ACID 1 MG TAB PO SCH (08:20)
[2019-07-13] MEDS: ASCORBIC ACID 500 MG TAB PO SCH (08:20)
[2019-07-13] MEDS: MEMANTINE 10 MG TAB PO SCH ×2 (08:20→17:28)
[2019-07-13] MEDS ORDERED: PHYTONADIONE 10 MG/ML AMP SQ ONE (08:58)
[2019-07-13] MEDS: EPOETIN ALFA-EPBX 10,000 UNIT/ML VIAL SC SCH (09:00)
[2019-07-13] MEDS: AMIODARONE HCL 900 MG in DEXTROSE 5% 500ML 500 ML IV SCH (09:00)
--- NOTE | 2019-07-13 10:12 | Diagnostic Imaging Report ---
EXAMINATION: CHEST SINGLE (PORTABLE) INDICATION: Dysphagia, obstructive jaundice COMPARISON: Chest radiograph 07/09/2019 FINDINGS: LINES/TUBES:Right IJ nontunneled traverses catheter terminates in the superior vena cava. Left chest AICD. EKG leads overlie the chest. LUNGS:The lungs are moderately inflated. There is perihilar fullness and indistinctness of the pulmonary vasculature. Mild bibasilar patchy opacities. PLEURA:No pleural effusion or pneumothorax. MEDIASTINUM:The cardiomediastinal silhouette appears unchanged in size and shape. BONES/SOFT TISSUES:No acute osseous injury. ABDOMEN:No free air under the diaphragm. IMPRESSION: Central pulmonary vascular congestion. Mild bibasilar patchy opacities, most likely subsegmental atelectasis. Signed by: Bertrand Tong MD on 07/13/2019 10:09 AM
--- NOTE | 2019-07-13 13:08 | Diagnostic Imaging Report ---
PROCEDURE: X-RAY MODIFIED BARIUM SWALLOW COMPARISON: None. INDICATION: Dysphagia Radiation Details: Fluoroscopy time: 2.3 minutes Cumulative dose: 17.5 mGy DISCUSSION: Fluoroscopic examination was performed in conjunction with speech pathology during swallowing a variety of thin and thick liquid consistencies. Provided images demonstrate no laryngeal penetration or aspiration. CONCLUSION: Modified barium swallow demonstrating no laryngeal penetration or aspiration. Please refer to the speech pathology report for further details. Signed by: Bertrand Tong MD on 07/13/2019 1:05 PM
--- NOTE | 2019-07-13 14:19 | NUR ---
Nutrition Intervention Note RD Recommendation for Physician: - Recommend changing diet to 1800 ADA, Renal per current lab trend - Recommend Nepro TID for adequacy Plan of Care: RD following, monitoring for tolerance and adequacy Nutrition reason for involvement: MD Consult, follow up RD Assessment 07/12: Follow up. Pt re-evaluated today per consult. Pt sleeping at initial visit and having testing at second visit, RN unavailable. Pt with HD yesterday with first treatment on 07/09, continues with 2-3+ edema and on a Dopamine drip. Pt with 0-25% meal intake per chart, tolerating diet with some residual abdominal pain. No GI distress recorded. Rec's provided. Will continue to monitor. 07/06: Follow up. Chart reviewed. Pt was advanced to a cardiac diet yesterday. It is recorded that pt consumed 50-75% of his meals yesterday and is tolerating the diet per RN. Will continue to monitor unless consulted sooner. (06/30) Chart reviewed. Labs and meds reviewed. 84yo M, who was admitted from [facility] for jaundice and elevated liver enzymes. Visited pt in the room. Pt tolerated clear liquid diet. No complains of nausea or vomiting. LBM 06/29. Unable to obtain weight hx. Pt appeared well-nourished. Plan to have ERCP on Wednesday and possible cholecystectomy. Will continue to monitor and follow. 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 Will re-evaluate at follow-up as appropriate. Nutrition Prescription (Diet Order): Cardiac Estimated Nutritional Needs: 1197-7879 calories/day (18-20 kcal/kg CBW) 82-123 g protein/day (1-1.5 g pro/kg CBW) Diet Adequacy: Meeting fluid needs, Not meeting calorie needs, Not meeting protein needs Diet Tolerance: tolerating, poor intake Diet Education Needs Assessment: Diet education indicated, but patient not appropriate for education at this time. Nutrition Care Level: Moderate Nutrition Diagnosis: Inadequate energy intake related to current medical conditions as evidenced by decreased po intake and not meeting needs. Goal: Patient will meet 75-100% of estimated needs by follow up Progress: N/A Interventions: -Mineral, CHO modified diet, Commercial beverage, Recommended Modifications, Multivitamin/mineral supplement therapy, Collaboration with other providers Monitoring/Evaluation: -Total energy intake, Total protein intake, Prescription medication, Modified diet, Liquid supplement, Weight change Signed: Vanessa Alexander RD, LD, [facility]
--- NOTE | 2019-07-13 15:00 | Progress Note ---
DATE: GI Progress Report SUBJECTIVE: The patient's appetite is poor, not eating much. Has not had any bowel movement today. Denies any abdominal pain. REVIEW OF SYSTEMS: GENERAL: Weakness and lethargy. CVS: No chest pain or palpitation. RESPIRATORY: No cough or expectoration. MEDICATIONS: Piperacillin/tazobactam 3.375 mg q.6 hours IV daily, metronidazole 500 mg IV q.8 hours, iron sucrose 110 mL/h every day, amiodarone 900 mg IV daily, vitamin C 500 mg daily, vitamin B12 1000 mcg p.o. daily, folic acid 1 mg daily, insulin lispro per sliding scale, midodrine 5 mg t.i.d., donepezil 10 mg at bedtime, tamsulosin 0.4 mg daily, memantine 10 mg twice daily, finasteride 5 mg p.o. at bedtime, hydrocodone/acetaminophen p.o. q.4 hours as needed, Zofran 4 mg p.o. q.4 hours as needed, and acetaminophen 650 mg p.o. q.6 hours as needed. PHYSICAL EXAMINATION: VITAL SIGNS: Temperature 98.8, pulse 78, respirations 16, blood pressure 148/58 to 167/73, and oxygen saturation 100% on room air. GENERAL: Not in any apparent distress. Appears to be lethargic and weak. HEENT: Oral mucosa is moist. ABDOMEN: Soft. Mild incisional tenderness in the right upper quadrant. There are don in one of the trocar surgical scar. No palpable mass or hernia. Positive bowel sounds and the patient has a massive scrotal edema. LABORATORY DATA: WBC 18.16, up from 16.80, hemoglobin remains stable from 6.7 to 6.5, hematocrit 20.4, and platelet count 265. Sodium 136, potassium 3.8, chloride 101, bicarb 18, BUN 47, creatinine 3.95 which is down from 5.67, and glucose is 219. Liver enzymes showed a total bilirubin has come down to 3.5 from 3.7, AST down to 32, ALT down to 62 from 70, and alkaline phosphatase 239 from 236. Modified barium swallow demonstrated no laryngeal penetration or aspiration. IMPRESSION: 1. Choledocholithiasis, status post ERCP with balloon sweep that resulted in removal of lot of pus and sludge on 07/03/2019. 2. Laparoscopic cholecystectomy on 07/04/2019. 3. Elevated liver enzymes, trending down, almost close to normalization. 4. Acute blood loss anemia, status post ERCP and sphincterotomy, laparoscopic cholecystectomy. No evidence of any gross GI bleeding. 5. Jehovah Witness. Therefore, the patient could not get blood transfusion. He is getting iron infusion. 6. Left renal cell mass, scrotal edema. The patient is being followed by [facility]. PLAN: Continue present ICU care. The patient does not have any evidence of any GI bleeding. No bowel movement today. Hemoglobin remains stable. Liver enzymes also near normalization. Rest of the care as per primary team. Bijan Ratliff MD SA/JA /[id number]
--- NOTE | 2019-07-13 19:00 | NUR ---
Bedside report received from Matt Oscar RN.
--- NOTE | 2019-07-13 19:05 | NUR ---
Dr. Rai is present and assessing the pt. I notified her that the pts Hbg and Hct have decreased today and that the pts stool is very dark. She stated, "This is to be expected and the medication (epoetin) will take days to work." She also ordered an occult blood (stool) to be collected and tested with next BM.
--- NOTE | 2019-07-13 19:20 | NUR ---
Pt having runs of VTACH. Pt is on amiodarone gtt at .5mg/min continuous. Dr. Stefan Valiente called and notified at this time. New orders received to restart amiodarone gtt protocol with bolus infusing included. Refer to Provider Notification Intervention documentation and small order cutter for further information.
[2019-07-13] MEDS ORDERED: AMIODARONE HCL 360MG 200 ML IV SCH (19:30)
[2019-07-13] MEDS ORDERED: AMIODARONE HCL 150MG 100 ML IV ONE (19:30)
[2019-07-13] MEDS ORDERED: AMIODARONE HCL 900 MG in DEXTROSE 5% 500ML 500 ML IV ONE (20:00)
[2019-07-13] MEDS: FINASTERIDE 5 MG TAB PO SCH (20:08)
[2019-07-13] MEDS: DONEPEZIL HCL 5 MG TAB PO SCH (20:08)
[2019-07-13] MEDS: IRON SUCROSE 200 MG in SODIUM CHLORIDE 0.9% 100 ML 100 ML IV SCH (21:14)
--- NOTE | 2019-07-13 22:40 | NUR ---
Pt reporting mild pain/discomfort to left foot and ankle. PRN Tylenol administered at this time.
[2019-07-14] VITALS (26 sets, daily range): BP systolic 88–126; BP diastolic 38–89
[2019-07-14] MEDS ORDERED: AMIODARONE HCL 360MG 200 ML IV SCH
--- NOTE | 2019-07-14 01:30 | NUR ---
Pt continues to report pain/discomfort to his left foot and ankle. PRN [place] administered at this time per orders.
[2019-07-14] MEDS ORDERED: AMIODARONE HCL 900 MG in DEXTROSE 5% 500ML 500 ML IV SCH ×5 (02:00→20:00)
--- NOTE | 2019-07-14 04:40 | NUR ---
AM blood lab specimen collected and sent to lab. Pt reports no pain or discomfort at this time.
[2019-07-14] MEDS: METRONIDAZOLE 500MG/NS 100ML 100 ML IV SCH (05:09)
[2019-07-14 05:28] LABS: BASOPHILS % 0.1 % (0.0-1.0); EOSINOPHILS # (AUTO) 0.1 (0.0-0.4); EOSINOPHILS % 0.5 % (0.0-6.0); LYMPHOCYTES # (AUTO) 1.2 (1.0-3.2); LYMPHOCYTES % 7.3 % (18.0-39.1); MEAN CORPUSCULAR HEMOGLOBIN 32.7 pg (28-32); MEAN CORPUSCULAR HGB CONC 31.5 g/dL (31-35); MEAN CORPUSCULAR VOLUME 103.8 fL (81-99); MONOCYTES # (AUTO) 1.4 (0.2-0.8); MONOCYTES % 8.7 % (4.4-11.3); NEUTROPHILS # (AUTO) 13.2 (2.1-6.9); NEUTROPHILS % 80.1 % (38.7-80.0); PLATELET COUNT 229 x10e3/uL (140-360); RED BLOOD COUNT 1.59 x10e6/uL (4.3-5.7); RED CELL DISTRIBUTION WIDTH 26.1 % (11.7-14.4)
[2019-07-14 05:42] LABS: HEMATOCRIT 16.5 % (38.2-49.6); HEMOGLOBIN 5.2 g/dL (14.0-18.0)
[2019-07-14] MEDS: PIPER-TAZ 3.375 GM 50 ML IV SCH ×4 (05:46→23:12)
[2019-07-14 05:47] LABS: ALBUMIN 1.7 g/dL (3.5-5.0); ALBUMIN/GLOBULIN RATIO 0.7 (0.8-2.0); ANION GAP 22.1 mmol/L (8-16); CALCIUM 7.4 mg/dL (8.4-10.2); CREATININE, SERUM 4.98 mg/dL (0.72-1.25); MAGNESIUM 1.9 MG/DL (1.3-2.1); POTASSIUM 4.1 mmol/L (3.5-5.1)
--- NOTE | 2019-07-14 06:20 | NUR ---
Dr. Rai notified of pts Hgb and Hct, no new orders received at this time.
[2019-07-14 07:04] LABS: PLATELET ESTIMATE ADEQUATE; POLYCHROMASIA MODERATE; RBC MORPHOLOGY COMMENT ABNORMAL
[2019-07-14 07:05] LABS: ANISOCYTOSIS MARKED
[2019-07-14 07:06] LABS: PLATELET MORPHOLOGY COMMENT RARE EDTA CLUMPING; POIKILOCYTOSIS SLIGHT
[2019-07-14] MEDS: INSULIN LISPRO 100 UNIT/1 ML 3ML VIAL SQ SCH ×4 (07:41→20:48)
[2019-07-14] MEDS: MEMANTINE 10 MG TAB PO SCH ×2 (08:05→16:05)
[2019-07-14] MEDS: ASCORBIC ACID 500 MG TAB PO SCH (08:05)
[2019-07-14] MEDS: FOLIC ACID 1 MG TAB PO SCH (08:05)
[2019-07-14] MEDS: MIDODRINE 2.5 MG TAB PO SCH ×3 (08:05→16:04)
[2019-07-14] MEDS: TAMSULOSIN HCL 0.4 MG CAP PO SCH (08:05)
[2019-07-14] MEDS: CYANOCOBALAMIN 1,000 MCG TAB PO SCH (08:05)
[2019-07-14] MEDS: FUROSEMIDE INJ 10 MG/ML 4 ML VIAL IV SCH ×2 (08:45→20:48)
[2019-07-14] MEDS: EPOETIN ALFA-EPBX 10,000 UNIT/ML VIAL SC SCH (08:46)
[2019-07-14] MEDS ORDERED: FUROSEMIDE INJ 10 MG/ML 4 ML VIAL IV SCH (09:00)
[2019-07-14] MEDS: PANTOPRAZOLE 40 MG 10ML VIAL INJ SCH ×2 (10:15→20:48)
[2019-07-14 18:01] LABS: HEMATOCRIT 16.1 % (38.2-49.6)
--- NOTE | 2019-07-14 18:12 | NUR ---
Pt's hemoglobin 5.[address] Stovall and Dr. Chowdary aware. Pt having large dark tarry liquid stool. Occult sample sent to lab. Dr. Ratliff's paged to inform about stool. Per Dr. Stovall hold dialysis today, MD attempted to contact pt's POA but she did not answer. Patient's daughter and POA Miladys Muir updated on patient condition. Code status clarified with Miladys Muir today, family spoke with pt on phone, family notified of visitation policy. POA paper work faxed to hospital and placed in pt chart. Per Miladys Muir (POA) wishes to have pt as a full DNAR at this time but wants to continue treatment. Dr. Chowdary notified of POA wishes, code change updated per MD. Dr. Ratliff ordered repeat hemoglobin and hematocrit, clear liquid diet ordered as well. called with lab results. Will continue to monitor pt.
--- NOTE | 2019-07-14 20:29 | Progress Note ---
DATE: 07/14/2019 GI Progress Report SUBJECTIVE: The patient has had two episodes of passing dark stool. Appetite is again poor. Reports no abdominal pain. REVIEW OF SYSTEMS: GENERAL: Weakness and lethargy. CVS: No chest pain or palpitation. RESPIRATORY: No cough or expectoration. INPATIENT MEDICATIONS: List reviewed as per APR. PHYSICAL EXAMINATION: VITAL SIGNS: Temperature 98.2, pulse ranging from 71 to 81, respirations 11 to 16, blood pressure 88/77 to 117/42, oxygen saturation 100% on 2 L of nasal cannula. GENERAL: Lethargic, drowsy. HEENT: Oral mucosa is moist. Anicteric sclerae. ABDOMEN: Incisional tenderness with trocar scars. LABORATORY DATA: WBC down to 16.48 from 18.16, hemoglobin down to 5.2 from 6.5, hematocrit down to 16.5 from 20.4, and platelet count 229. Liver enzymes today showed total bilirubin down to 3.2 from 3.5, AST 26 from 32, ALT 54 from 62, and alkaline phosphatase 239 from 239. IMPRESSION: 1. Choledocholithiasis, status post ERCP with balloon sweep that resulted into removal of lot of pus and sludge. He also has had a large sphincterotomy performed. Procedure was done on 07/03/2019. 2. Laparoscopic cholecystectomy on 07/04/2019. 3. Elevated liver enzymes, which is trending down, almost close to normalization. 4. Acute blood loss anemia. The patient has had episode of melena today. This is concerning for possible post sphincterotomy bleeding. 5. Confucianism. 6. Left renal mass, scrotal edema. The patient is being followed by [facility]rology [facility]. PLAN: Continue IV PPI twice daily. Clear liquid diet. The patient is on cardiac diet, but barely eating. We will repeat hemoglobin this evening. If the patient continues to have persistent melena with dropping hemoglobin, he will need urgent upper endoscopy. At this point of time, it looks like the patient is not actively bleeding. He is maintaining normal blood pressure. He is maintaining normal blood pressure without being on any vasopressors. The family has also decided to put him on DNR. It is not clear if the family is going to put him to hospice or comfort care. We will continue to follow him actively till depending the final decision of the family. Bijan Ratliff MD SA/JA /[id number]
[2019-07-14] MEDS: DONEPEZIL HCL 5 MG TAB PO SCH (20:49)
[2019-07-14] MEDS: IRON SUCROSE 200 MG in SODIUM CHLORIDE 0.9% 100 ML 100 ML IV SCH (22:14)
[2019-07-15] VITALS (16 sets, daily range): BP systolic 89–101; BP diastolic 31–50
[2019-07-15] MEDS: PIPER-TAZ 3.375 GM 50 ML IV SCH ×3 (05:08→16:16)
[2019-07-15] MEDS: INSULIN LISPRO 100 UNIT/1 ML 3ML VIAL SQ SCH ×3 (07:30→16:16)
[2019-07-15 07:48] LABS: BASOPHILS % 0.1 % (0.0-1.0); EOSINOPHILS # (AUTO) 0.5 (0.0-0.4); EOSINOPHILS % 2.9 % (0.0-6.0); HEMATOCRIT 15.5 % (38.2-49.6); LYMPHOCYTES # (AUTO) 1.4 (1.0-3.2); LYMPHOCYTES % 8.4 % (18.0-39.1); MEAN CORPUSCULAR HEMOGLOBIN 32.2 pg (28-32); MONOCYTES # (AUTO) 1.4 (0.2-0.8); MONOCYTES % 8.4 % (4.4-11.3); NEUTROPHILS # (AUTO) 12.8 (2.1-6.9); NEUTROPHILS % 77.6 % (38.7-80.0); PLATELET COUNT 179 x10e3/uL (140-360); RED BLOOD COUNT 1.49 x10e6/uL (4.3-5.7); RED CELL DISTRIBUTION WIDTH 27.5 % (11.7-14.4)
[2019-07-15] MEDS: FUROSEMIDE INJ 10 MG/ML 4 ML VIAL IV SCH (07:56)
[2019-07-15] MEDS: ASCORBIC ACID 500 MG TAB PO SCH (07:57)
[2019-07-15] MEDS: PANTOPRAZOLE 40 MG 10ML VIAL INJ SCH (07:57)
[2019-07-15] MEDS: FOLIC ACID 1 MG TAB PO SCH (07:57)
[2019-07-15 08:02] LABS: HEMOGLOBIN 4.8 g/dL (14.0-18.0)
[2019-07-15 08:09] LABS: ALBUMIN 1.5 g/dL (3.5-5.0); ALBUMIN/GLOBULIN RATIO 0.7 (0.8-2.0); ANION GAP 18.9 mmol/L (8-16); CALCIUM 7.3 mg/dL (8.4-10.2); CREATININE, SERUM 5.98 mg/dL (0.72-1.25); PHOSPHORUS 6.1 MG/DL (2.3-4.7); POTASSIUM 3.9 mmol/L (3.5-5.1)
[2019-07-15] MEDS: MIDODRINE 2.5 MG TAB PO SCH ×3 (08:23→16:00)
[2019-07-15] MEDS: MEMANTINE 10 MG TAB PO SCH ×2 (08:23→16:16)
[2019-07-15] MEDS: CYANOCOBALAMIN 1,000 MCG TAB PO SCH (08:23)
[2019-07-15] MEDS: EPOETIN ALFA-EPBX 10,000 UNIT/ML VIAL SC SCH (08:27)
[2019-07-15 09:40] LABS: ANISOCYTOSIS MODERATE; HYPOCHROMASIA MODERATE
--- NOTE | 2019-07-15 18:43 | NUR ---
Pt had two runs of VTAC at 1047 and 1053. 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 Dr. Nneka Valiente aware. Per renal pt too unstable for dialysis. Pt already on amiodarone drip. Pt's became hypotensive systolic in 80's, dopamine drip restarted at 5 MCG/KG/MIN. 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 Dr. Nneka Valiente notified and pt's ALONA Muir aware of situation. Per Ida Valiente if pt's ALONA Muir ok with it magnet can be placed over pacemaker to stop firing. Beryl called and stated she would like firing to be stopped with magnet at this time. Family came to see pt. Time of 1527, Dr. Atkins came to pronounce time of . Dr. Chowdary and Dr. Rai notified of . [facility] informed of ( ). Post mortem care done. [facility] picked up patient at 1842. Dong Muir notified that home has received patient.
[2019-07-16] MEDS ORDERED: EPOETIN ALFA-EPBX 10,000 UNIT/ML VIAL SC SCH (09:00)
== END 2019-07-15 18:50 | disposition expired | DRG 417 ==
LOC: ER 13:16 → ERHOLD 16:01 → MED/SURG2 19:45 → ICU 07-07 21:33
PROVIDERS: ADMIT Internal Medicine; ATTEND Internal Medicine
PROC: 0FT44ZZ Resection of Gallbladder, Percutaneous Endoscopic Approach (ICD-10-PCS; principal; 2019-07-04 13:30)
PROC: 5A1D70Z Performance of Urinary Filtration, Intermittent, Less than 6 Hours Per Day (ICD-10-PCS; 2019-07-08)
DX: K80.00 Calculus of gallbladder with acute cholecystitis without obstruction (principal); R65.21 Severe sepsis with septic shock; A41.9 Sepsis, unspecified organism; I21.4 Non-ST elevation (NSTEMI) myocardial infarction; I50.23 Acute on chronic systolic (congestive) heart failure; N18.6 End stage renal disease; N17.0 Acute kidney failure with tubular necrosis; E87.2 Acidosis; D62 Acute posthemorrhagic anemia; I13.2 Hypertensive heart and chronic kidney disease with heart failure and with stage 5 chronic kidney disease, or end stage renal disease; C64.2 Malignant neoplasm of left kidney, except renal pelvis; G30.9 Alzheimer's disease, unspecified; F02.80 Dementia in other diseases classified elsewhere, unspecified severity, without behavioral disturbance, psychotic disturbance, mood disturbance, and anxiety; Z99.2 Dependence on renal dialysis; Z79.4 Long term (current) use of insulin; Z89.611 Acquired absence of right leg above knee; Z95.810 Presence of automatic (implantable) cardiac defibrillator; Z03.818 Encounter for observation for suspected exposure to other biological agents ruled out; Z66 Do not resuscitate; E87.5 Hyperkalemia
CPT/HCPCS: 36415; 36556; 43260; 71045; 74018; 74176; 74177; 74230; 74328; 74470; 76705; 76770; 76937; 80048; 80053; 80076; 80307; 80329; 81001; 82140; 82150; 82270; 82550; 82553; 82948; 83540; 83690; 83735; 83880; 84100; 84466; 84478; 84484; 85014; 85018; 85025; 85610; 85730; 86706; 87040; 87086; 87340; 87350; 87635; 88304; 90962; 93005; 96372; 99251; 99284; J0610; J1100; J1644; J1756; J1817; J1940; J2001; J2150; J2250; J2270; J2405; J2543; J3010; J3430; J3475; J7030; J7040; J7042; J7050; J7060; J7799; Q9967